=== PATIENT | male | born 1945 | race Caucasian/White ===

== ENCOUNTER 2022-12-09 21:53 | Inpatient (IN) | payer MEDICARE, OTHER ==
[~2022-12-09] VITALS: Ht 175.3 cm; Wt 63.5 kg
[2022-12-09] MEDS ORDERED: LIDOCAINE 2% JEL UROJET 10 ML MM ONE (22:39)
[2022-12-09 22:41] LABS: BASOPHILS # (AUTO) 0.1 K/uL (0.0-0.2); BASOPHILS % (AUTO) 0.9 % (0.0-2.0); EOSINOPHILS # (AUTO) 0.2 K/uL (0.0-0.7); HEMATOCRIT 38 % (39-51); HEMOGLOBIN 12.5 g/dL (13.5-17.5); LYMPHOCYTES # (AUTO) 2.3 K/uL (0.8-4.8); LYMPHOCYTES % (AUTO) 38.1 % (20.0-44.0); MEAN CORPUSCULAR HEMOGLOBIN 30 PG (26.0-33.0); MEAN CORPUSCULAR HGB CONC 33 g/dl (31.0-36.0); MEAN CORPUSCULAR VOLUME 92 fL (80-96); MONOCYTES # (AUTO) 0.4 K/uL (0.1-1.30); MONOCYTES % (AUTO) 7.1 % (2.0-12.0); NEUTROPHILS # (AUTO) 3.1 K/uL (1.8-8.9); NEUTROPHILS % (AUTO) 49.9 % (43.0-81.0); PLATELET COUNT (AUTO) 231 K/uL (150-450); RED BLOOD CELL COUNT(AUTO) 4.12 MIL/uL (4.5-6.0); RED CELL DISTRIBUTION WIDTH 16.1 % (11.5-15.0); WHITE BLOOD COUNT (AUTO) 6.2 K/uL (4.3-11.0)
[2022-12-09 22:45] LABS: CALCIUM, SERUM 9.5 mg/dL (8.5-10.1); CARBON DIOXIDE 29 mmol/L (21-32); CHLORIDE 106 mmol/L (98-107); GLUCOSE 94 mg/dL (74-106); SODIUM SERUM 143 mmol/L (136-145); UREA NITROGEN, BLOOD 26 mg/dL (7-18)
[2022-12-09 22:51] LABS: ALANINE AMINOTRANSFERASE 28 U/L (12-78); ALBUMIN 3.8 g/dL (3.4-5.0); ALCOHOL, BLOOD < 3 mg/dL (0-10); ALKALINE PHOSPHATASE 91 U/L (46-116); ASPARTATE AMINOTRANSFERASE 24 U/L (15-37); BILIRUBIN,DIRECT 0.1 mg/dL (0.0-0.2); BILIRUBIN,TOTAL 0.3 mg/dL (0.2-1.0); TOTAL PROTEIN, SERUM 6.9 g/dL (6.4-8.2)
[2022-12-09 22:52] LABS: ACETAMINOPHEN <10 ug/ml (10-30); SALICYLATE 0.4 mg/dL (2.8-20.0)
[2022-12-09 23:03] LABS: APPEARANCE,URINE CLEAR (CLEAR); BILIRUBIN,URINE NEGATIVE (NEGATIVE); BLOOD, URINE NEGATIVE Ery/uL (NEGATIVE); COLOR,URINE YELLOW (YELLOW); KETONES,URINE NEGATIVE (NEGATIVE); LEUKOCYTE ESTERASE ,URINE NEGATIVE (NEGATIVE); NITRITE, URINE NEGATIVE (NEGATIVE); PH,URINE 7.5 (5.0-8.0); PROTEIN,URINE NEGATIVE (NEGATIVE); UGLUCOSE NEGATIVE (NEGATIVE); UROBILINOGEN,URINE 0.2 EU/dL (0.2)
[2022-12-09 23:11] LABS: AMPHETAMINE, URINE NEGATIVE (NEGATIVE); BARBITURATE, URINE NEGATIVE (NEGATIVE); BENZODIAZEPINE, URINE NEGATIVE (NEGATIVE); CANNABINOID, URINE NEGATIVE (NEGATIVE); COCCAINE, URINE NEGATIVE (NEGATIVE); OPIATE, URINE NEGATIVE (NEGATIVE); PHENCYCLIDINE SCREEN,URINE NEGATIVE (NEGATIVE)
[2022-12-10] MEDS ORDERED: DIVA250T PO (02:08)
[2022-12-10] MEDS ORDERED: FAMO20TA8 PO (02:08)
[2022-12-10] MEDS ORDERED: CLOP75TA15 PO (02:08)
[2022-12-10] MEDS ORDERED: LOSA25TA27 PO (02:08)
[2022-12-10] MEDS ORDERED: ASPI-1420 PO (02:08)
[2022-12-10] MEDS ORDERED: ATOR80TA PO (02:08)
[2022-12-10] MEDS ORDERED: DIVA500T2 GT (02:59)
[2022-12-10] MEDS ORDERED: MELA5TAB PO (02:59)
[2022-12-10] MEDS ORDERED: ACETAMINOPHEN 325 MG TABLET PO PRN (03:00)
[2022-12-10] MEDS ORDERED: MAGNESIUM HYDROXIDE 30 ML UDC PO PRN (03:00)
[2022-12-10] MEDS ORDERED: MAG HYDROX/AL HYDROX/SIMETH 30 ML UDC PO PRN (03:00)
[2022-12-10] MEDS ORDERED: NITR0.4T48 SL (03:00)
[2022-12-10] MEDS ORDERED: BLOOD SUGAR DIAGNOSTIC 1 EACH STRIP IN ONE (03:00)
[2022-12-10] MEDS ORDERED: OLAN2.5T3 PO (03:02)
[2022-12-10] MEDS ORDERED: OLAN5TAB3 PO (03:02)
[2022-12-10] MEDS ORDERED: SENN1TAB6 PO (03:05)
[2022-12-10] MEDS ORDERED: TAMS-12 PO (03:08)
[2022-12-10] MEDS ORDERED: Z GUARD REMEDY 4 OZ OINT TP PRN (03:30)
[2022-12-10 03:55] VITALS: BP 119/74; TEMP 98; O2SAT 98
[2022-12-10] MEDS ORDERED: BISA10SU11 RC (07:37)
[2022-12-10] MEDS ORDERED: RIVA6CAP11 PO (07:37)
[2022-12-10] MEDS ORDERED: DIVA-76 PO (07:37)
[2022-12-10] MEDS ORDERED: METO25TA20 PO (07:37)
[2022-12-10] MEDS ORDERED: ACET-2605 PO ×2 (07:37)
[2022-12-10] MEDS ORDERED: ACET-868 PO (07:37)
[2022-12-10] MEDS ORDERED: SENN-261 PO (07:37)
[2022-12-10] MEDS ORDERED: NA P133E RC (07:37)
[2022-12-10] MEDS ORDERED: ASPI-1169 PO (07:37)
[2022-12-10] MEDS ORDERED: MAGN400O6 PO (07:37)
[2022-12-10 08:00] VITALS: BP 126/60; TEMP 97.8; O2SAT 94
[2022-12-10] MEDS: Z GUARD REMEDY 4 OZ OINT TP SCH (09:58)
[2022-12-10 16:00] VITALS: BP 130/71; TEMP 97.6; O2SAT 96
[2022-12-10] MEDS: CLOPIDOGREL BISULFATE 75 MG TABLET PO SCH (16:12)
[2022-12-10] MEDS: METOPROLOL TARTRATE 25 MG TABLET PO SCH (16:12)
[2022-12-10] MEDS: DIVALPROEX SODIUM 125 MG CAP.SPRINK PO SCH (16:13)
[2022-12-10 20:00] VITALS: BP 134/71; TEMP 98.1; O2SAT 95
[2022-12-10] MEDS: TAMSULOSIN 0.4 MG CAP.SR.24H PO SCH (21:21)
[2022-12-10] MEDS: ATORVASTATIN 40 MG TABLET PO SCH (21:21)
[2022-12-11 07:18] LABS: CHOLESTEROL 158 mg/dL (<200); HDL CHOLESTEROL 88 mg/dL (40-60); LDL 62 mg/dL (0-99); TRIGLYCERIDES 38 mg/dL (30-150)
[2022-12-11 08:00] VITALS: BP 103/71; TEMP 98.1; O2SAT 94
[2022-12-11] MEDS: LOSARTAN POTASSIUM 25 MG TABLET PO SCH (08:58)
[2022-12-11] MEDS: METOPROLOL TARTRATE 25 MG TABLET PO SCH ×2 (08:59→17:18)
[2022-12-11] MEDS: Z GUARD REMEDY 4 OZ OINT TP SCH (09:00)
[2022-12-11] MEDS ORDERED: CLOPIDOGREL BISULFATE 75 MG TABLET PO SCH (09:00)
[2022-12-11] MEDS: DIVALPROEX SODIUM 125 MG CAP.SPRINK PO SCH ×3 (09:01→17:17)
[2022-12-11] MEDS: FAMOTIDINE (20 MG) 20 MG TABLET PO SCH (09:01)
[2022-12-11] MEDS: ASPIRIN 81 MG TAB.CHEW PO SCH (09:01)
[2022-12-11] MEDS: CLOPIDOGREL BISULFATE 75 MG TABLET PO SCH (09:01)
[2022-12-11 09:45] LABS: ALBUMIN 3.8 g/dL (3.4-5.0); BILIRUBIN,TOTAL 0.6 mg/dL (0.2-1.0); CALCIUM, SERUM 9.2 mg/dL (8.5-10.1); CREATININE 0.9 mg/dL (0.6-1.3); POTASSIUM 3.7 mmol/L (3.5-5.1); TOTAL PROTEIN, SERUM 7.6 g/dL (6.4-8.2)
[2022-12-11 12:17] LABS: THYROID STIMULATING HORMONE 4.939 uIU/mL (0.358-3.74)
[2022-12-11 16:00] VITALS: BP 120/85; TEMP 97.6; O2SAT 92
[2022-12-11] MEDS: TAMSULOSIN 0.4 MG CAP.SR.24H PO SCH (21:37)
[2022-12-11] MEDS: ATORVASTATIN 40 MG TABLET PO SCH (21:37)
[2022-12-12 06:06] LABS: FOLIC ACID > 20.0 ng/mL (>3.0)
[2022-12-12 08:00] VITALS: BP 118/99; TEMP 97.7; O2SAT 98
[2022-12-12] MEDS: FAMOTIDINE (20 MG) 20 MG TABLET PO SCH (08:40)
[2022-12-12] MEDS: CLOPIDOGREL BISULFATE 75 MG TABLET PO SCH (08:53)
[2022-12-12] MEDS: LOSARTAN POTASSIUM 25 MG TABLET PO SCH (08:54)
[2022-12-12] MEDS: METOPROLOL TARTRATE 25 MG TABLET PO SCH ×2 (08:54→16:10)
[2022-12-12] MEDS: ASPIRIN 81 MG TAB.CHEW PO SCH (08:54)
[2022-12-12] MEDS: DIVALPROEX SODIUM 125 MG CAP.SPRINK PO SCH ×3 (08:54→16:08)
[2022-12-12] MEDS: Z GUARD REMEDY 4 OZ OINT TP SCH (08:55)
[2022-12-12 16:00] VITALS: BP 111/80; TEMP 97.8; O2SAT 98
[2022-12-12] MEDS: LORAZEPAM 0.5 MG TABLET PO PRN (16:47)
[2022-12-12 20:14] VITALS: BP 116/84; TEMP 97.9; O2SAT 97
[2022-12-12] MEDS: TAMSULOSIN 0.4 MG CAP.SR.24H PO SCH (21:52)
[2022-12-12] MEDS: ATORVASTATIN 40 MG TABLET PO SCH (21:52)
[2022-12-13 08:00] VITALS: BP 112/82; TEMP 97.7; O2SAT 96
[2022-12-13] MEDS: ASPIRIN 81 MG TAB.CHEW PO SCH (08:43)
[2022-12-13] MEDS: FAMOTIDINE (20 MG) 20 MG TABLET PO SCH (08:43)
[2022-12-13] MEDS: DIVALPROEX SODIUM 125 MG CAP.SPRINK PO SCH ×3 (08:43→17:11)
[2022-12-13] MEDS: CLOPIDOGREL BISULFATE 75 MG TABLET PO SCH (08:43)
[2022-12-13] MEDS: LORAZEPAM 0.5 MG TABLET PO PRN ×2 (08:43→17:11)
[2022-12-13] MEDS: METOPROLOL TARTRATE 25 MG TABLET PO SCH ×2 (08:44→17:12)
[2022-12-13] MEDS: LOSARTAN POTASSIUM 25 MG TABLET PO SCH (08:44)
[2022-12-13] MEDS: Z GUARD REMEDY 4 OZ OINT TP SCH (08:45)
[2022-12-13 16:00] VITALS: BP 108/96; TEMP 97.8; O2SAT 98
[2022-12-13 20:47] VITALS: TEMP 97.9; O2SAT 98
[2022-12-13] MEDS: ATORVASTATIN 40 MG TABLET PO SCH (21:31)
[2022-12-13] MEDS: TAMSULOSIN 0.4 MG CAP.SR.24H PO SCH (21:31)
[2022-12-13] MEDS: TEMAZEPAM 7.5 MG CAPSULE PO PRN (21:57)
[2022-12-14] MEDS: LORAZEPAM 0.5 MG TABLET PO PRN (04:02)
[2022-12-14 08:00] VITALS: BP 135/90; TEMP 97.9; O2SAT 98
[2022-12-14] MEDS: FAMOTIDINE (20 MG) 20 MG TABLET PO SCH (10:00)
[2022-12-14] MEDS: Z GUARD REMEDY 4 OZ OINT TP SCH (10:00)
[2022-12-14] MEDS: ASPIRIN 81 MG TAB.CHEW PO SCH (10:00)
[2022-12-14] MEDS: CLOPIDOGREL BISULFATE 75 MG TABLET PO SCH (10:01)
[2022-12-14] MEDS: DIVALPROEX SODIUM 125 MG CAP.SPRINK PO SCH ×3 (10:01→16:15)
[2022-12-14] MEDS: LOSARTAN POTASSIUM 25 MG TABLET PO SCH (10:02)
[2022-12-14] MEDS: METOPROLOL TARTRATE 25 MG TABLET PO SCH ×2 (10:02→16:15)
[2022-12-14 16:00] VITALS: BP 98/74; TEMP 98; O2SAT 97
[2022-12-14 20:47] VITALS: BP 131/96; TEMP 97.8; O2SAT 95
[2022-12-14] MEDS: ATORVASTATIN 40 MG TABLET PO SCH (21:34)
[2022-12-14] MEDS: TEMAZEPAM 7.5 MG CAPSULE PO PRN (21:34)
[2022-12-14] MEDS: TAMSULOSIN 0.4 MG CAP.SR.24H PO SCH (21:34)
[2022-12-15 08:00] VITALS: BP 121/87; TEMP 97.9; O2SAT 97
[2022-12-15] MEDS: FAMOTIDINE (20 MG) 20 MG TABLET PO SCH (08:01)
[2022-12-15] MEDS: DIVALPROEX SODIUM 125 MG CAP.SPRINK PO SCH ×3 (09:34→17:22)
[2022-12-15] MEDS: LOSARTAN POTASSIUM 25 MG TABLET PO SCH (09:34)
[2022-12-15] MEDS: METOPROLOL TARTRATE 25 MG TABLET PO SCH ×2 (09:34→17:22)
[2022-12-15] MEDS: Z GUARD REMEDY 4 OZ OINT TP SCH (09:34)
[2022-12-15] MEDS: CLOPIDOGREL BISULFATE 75 MG TABLET PO SCH (09:34)
[2022-12-15] MEDS: ASPIRIN 81 MG TAB.CHEW PO SCH (09:34)
[2022-12-15 12:07] LABS: METHYLMALONIC ACID 207 nmol/L (0-378)
[2022-12-15] MEDS: LORAZEPAM 0.5 MG TABLET PO PRN (12:46)
[2022-12-15 16:09] VITALS: BP 115/67; TEMP 97.8; O2SAT 98
[2022-12-15 21:38] VITALS: BP 117/85; TEMP 98.6; O2SAT 94
[2022-12-15] MEDS: TAMSULOSIN 0.4 MG CAP.SR.24H PO SCH (21:46)
[2022-12-15] MEDS: ATORVASTATIN 40 MG TABLET PO SCH (21:46)
[2022-12-16 08:00] VITALS: BP 131/70; TEMP 98.7; O2SAT 98
[2022-12-16] MEDS: FAMOTIDINE (20 MG) 20 MG TABLET PO SCH (08:58)
[2022-12-16] MEDS: ASPIRIN 81 MG TAB.CHEW PO SCH (08:58)
[2022-12-16] MEDS: LORAZEPAM 0.5 MG TABLET PO PRN ×2 (08:58→13:54)
[2022-12-16] MEDS: CLOPIDOGREL BISULFATE 75 MG TABLET PO SCH (08:58)
[2022-12-16] MEDS: METOPROLOL TARTRATE 25 MG TABLET PO SCH ×2 (08:59→17:47)
[2022-12-16] MEDS: DIVALPROEX SODIUM 125 MG CAP.SPRINK PO SCH ×3 (08:59→17:45)
[2022-12-16] MEDS: LOSARTAN POTASSIUM 25 MG TABLET PO SCH (08:59)
[2022-12-16] MEDS: Z GUARD REMEDY 4 OZ OINT TP SCH (09:00)
[2022-12-16 16:00] VITALS: BP 123/83; TEMP 97.7; O2SAT 97
[2022-12-16 20:31] VITALS: BP 100/71; TEMP 98.9; O2SAT 95
[2022-12-16] MEDS: TAMSULOSIN 0.4 MG CAP.SR.24H PO SCH (21:15)
[2022-12-16] MEDS: ATORVASTATIN 40 MG TABLET PO SCH (21:15)
[2022-12-17 08:00] VITALS: BP 110/64; TEMP 97.6; O2SAT 94
[2022-12-17] MEDS: DIVALPROEX SODIUM 125 MG CAP.SPRINK PO SCH ×3 (08:50→16:55)
[2022-12-17] MEDS: FAMOTIDINE (20 MG) 20 MG TABLET PO SCH (08:50)
[2022-12-17] MEDS: ASPIRIN 81 MG TAB.CHEW PO SCH (08:50)
[2022-12-17] MEDS: CLOPIDOGREL BISULFATE 75 MG TABLET PO SCH (08:51)
[2022-12-17] MEDS: METOPROLOL TARTRATE 25 MG TABLET PO SCH ×2 (08:52→16:55)
[2022-12-17] MEDS: LOSARTAN POTASSIUM 25 MG TABLET PO SCH (08:52)
[2022-12-17] MEDS: Z GUARD REMEDY 4 OZ OINT TP SCH (08:53)
[2022-12-17 16:00] VITALS: BP 111/64; TEMP 97.8; O2SAT 95
[2022-12-17 20:00] VITALS: BP 118/71; TEMP 98.1; O2SAT 97
[2022-12-17] MEDS: ATORVASTATIN 40 MG TABLET PO SCH (22:02)
[2022-12-17] MEDS: TAMSULOSIN 0.4 MG CAP.SR.24H PO SCH (22:02)
[2022-12-18 08:00] VITALS: BP 110/65; TEMP 97.7; O2SAT 97
[2022-12-18] MEDS: FAMOTIDINE (20 MG) 20 MG TABLET PO SCH (08:46)
[2022-12-18] MEDS: METOPROLOL TARTRATE 25 MG TABLET PO SCH ×2 (09:00→16:31)
[2022-12-18] MEDS: LOSARTAN POTASSIUM 25 MG TABLET PO SCH (09:00)
[2022-12-18] MEDS: CLOPIDOGREL BISULFATE 75 MG TABLET PO SCH (09:11)
[2022-12-18] MEDS: ASPIRIN 81 MG TAB.CHEW PO SCH (09:11)
[2022-12-18] MEDS: DIVALPROEX SODIUM 125 MG CAP.SPRINK PO SCH ×3 (09:11→16:30)
[2022-12-18] MEDS: Z GUARD REMEDY 4 OZ OINT TP SCH (09:12)
[2022-12-18] MEDS: LORAZEPAM 0.5 MG TABLET PO PRN (14:43)
[2022-12-18 16:00] VITALS: BP 112/76; TEMP 97.8; O2SAT 96
[2022-12-18] MEDS: TAMSULOSIN 0.4 MG CAP.SR.24H PO SCH (21:49)
[2022-12-18] MEDS: ATORVASTATIN 40 MG TABLET PO SCH (21:49)
[2022-12-19] MEDS: FAMOTIDINE (20 MG) 20 MG TABLET PO SCH (07:58)
[2022-12-19 08:00] VITALS: BP 105/48; TEMP 98.6; O2SAT 94
[2022-12-19] MEDS: CLOPIDOGREL BISULFATE 75 MG TABLET PO SCH (08:00)
[2022-12-19] MEDS: DIVALPROEX SODIUM 125 MG CAP.SPRINK PO SCH ×3 (08:00→16:51)
[2022-12-19] MEDS: LOSARTAN POTASSIUM 25 MG TABLET PO SCH (08:00)
[2022-12-19] MEDS: METOPROLOL TARTRATE 25 MG TABLET PO SCH ×2 (08:00→16:51)
[2022-12-19] MEDS: ASPIRIN 81 MG TAB.CHEW PO SCH (08:00)
[2022-12-19] MEDS: ENSURE ENLIVE 237 ML LIQUID (VANILLA) PO SCH (08:01)
[2022-12-19] MEDS: Z GUARD REMEDY 4 OZ OINT TP SCH (08:01)
[2022-12-19] MEDS: LORAZEPAM 0.5 MG TABLET PO PRN ×2 (12:06→18:16)
[2022-12-19 15:27] LABS: BASOPHILS % (AUTO) 0.4 % (0.0-2.0); EOSINOPHILS # (AUTO) 0.1 K/uL (0.0-0.7); EOSINOPHILS % (AUTO) 0.9 % (0.0-6.0); HEMATOCRIT 37 % (39-51); HEMOGLOBIN 12.4 g/dL (13.5-17.5); LYMPHOCYTES # (AUTO) 2.7 K/uL (0.8-4.8); LYMPHOCYTES % (AUTO) 28.9 % (20.0-44.0); MEAN CORPUSCULAR HEMOGLOBIN 30 PG (26.0-33.0); MEAN CORPUSCULAR HGB CONC 33 g/dl (31.0-36.0); MEAN CORPUSCULAR VOLUME 91 fL (80-96); MONOCYTES # (AUTO) 0.8 K/uL (0.1-1.30); NEUTROPHILS # (AUTO) 5.8 K/uL (1.8-8.9); NEUTROPHILS % (AUTO) 61.8 % (43.0-81.0); PLATELET COUNT (AUTO) 332 K/uL (150-450); RED CELL DISTRIBUTION WIDTH 15.7 % (11.5-15.0); WHITE BLOOD COUNT (AUTO) 9.4 K/uL (4.3-11.0)
[2022-12-19 15:46] LABS: ALANINE AMINOTRANSFERASE 49 U/L (12-78); ALBUMIN 2.7 g/dL (3.4-5.0); ALKALINE PHOSPHATASE 73 U/L (46-116); ASPARTATE AMINOTRANSFERASE 59 U/L (15-37); BILIRUBIN,TOTAL 0.4 mg/dL (0.2-1.0); CALCIUM, SERUM 8.9 mg/dL (8.5-10.1); CARBON DIOXIDE 29 mmol/L (21-32); CHLORIDE 103 mmol/L (98-107); CREATININE 0.6 mg/dL (0.6-1.3); GLUCOSE 76 mg/dL (74-106); POTASSIUM 4.2 mmol/L (3.5-5.1); SODIUM SERUM 141 mmol/L (136-145); TOTAL PROTEIN, SERUM 6.4 g/dL (6.4-8.2); UREA NITROGEN, BLOOD 23 mg/dL (7-18)
[2022-12-19 15:52] LABS: VALPROIC ACID 41 ug/mL (50-100)
[2022-12-19 16:00] VITALS: BP 128/83; TEMP 97.6; O2SAT 94
[2022-12-19 20:00] VITALS: BP 109/64; TEMP 98.3; O2SAT 96
[2022-12-19] MEDS: ATORVASTATIN 40 MG TABLET PO SCH (22:13)
[2022-12-19] MEDS: TAMSULOSIN 0.4 MG CAP.SR.24H PO SCH (22:13)
[2022-12-20 08:00] VITALS: BP 112/67; TEMP 97.8; O2SAT 96
[2022-12-20] MEDS: ASPIRIN 81 MG TAB.CHEW PO SCH (08:20)
[2022-12-20] MEDS: DIVALPROEX SODIUM 125 MG CAP.SPRINK PO SCH ×3 (08:20→16:31)
[2022-12-20] MEDS: METOPROLOL TARTRATE 25 MG TABLET PO SCH ×2 (08:20→16:30)
[2022-12-20] MEDS: FAMOTIDINE (20 MG) 20 MG TABLET PO SCH (08:21)
[2022-12-20] MEDS: LOSARTAN POTASSIUM 25 MG TABLET PO SCH (08:21)
[2022-12-20] MEDS: ENSURE ENLIVE 237 ML LIQUID (VANILLA) PO SCH (08:21)
[2022-12-20] MEDS: CLOPIDOGREL BISULFATE 75 MG TABLET PO SCH (08:21)
[2022-12-20] MEDS: LORAZEPAM 0.5 MG TABLET PO PRN ×2 (08:21→15:46)
[2022-12-20] MEDS: Z GUARD REMEDY 4 OZ OINT TP SCH (08:53)
[2022-12-20 16:00] VITALS: BP 104/62; TEMP 97.9; O2SAT 97
[2022-12-20] MEDS: busPIRone 5 MG TABLET PO SCH (16:32)
[2022-12-20 20:35] VITALS: BP 138/81; TEMP 97.9; O2SAT 96
[2022-12-20] MEDS: TEMAZEPAM 7.5 MG CAPSULE PO PRN (20:41)
[2022-12-20] MEDS: TAMSULOSIN 0.4 MG CAP.SR.24H PO SCH (21:03)
[2022-12-20] MEDS: ATORVASTATIN 40 MG TABLET PO SCH (21:03)
[2022-12-21] MEDS: LORAZEPAM 0.5 MG TABLET PO PRN ×2 (06:58→14:36)
[2022-12-21 08:00] VITALS: BP 126/78; TEMP 98.6; O2SAT 97
[2022-12-21] MEDS: FAMOTIDINE (20 MG) 20 MG TABLET PO SCH (08:19)
[2022-12-21] MEDS: CLOPIDOGREL BISULFATE 75 MG TABLET PO SCH (08:34)
[2022-12-21] MEDS: LOSARTAN POTASSIUM 25 MG TABLET PO SCH (08:34)
[2022-12-21] MEDS: ASPIRIN 81 MG TAB.CHEW PO SCH (08:34)
[2022-12-21] MEDS: busPIRone 5 MG TABLET PO SCH ×3 (08:34→16:09)
[2022-12-21] MEDS: DIVALPROEX SODIUM 125 MG CAP.SPRINK PO SCH ×3 (08:34→16:08)
[2022-12-21] MEDS: METOPROLOL TARTRATE 25 MG TABLET PO SCH ×2 (08:35→16:09)
[2022-12-21] MEDS: Z GUARD REMEDY 4 OZ OINT TP SCH (08:35)
[2022-12-21] MEDS: ENSURE ENLIVE 237 ML LIQUID (VANILLA) PO SCH (08:36)
[2022-12-21 11:20] LABS: BASOPHILS % (AUTO) 0.2 % (0.0-2.0); EOSINOPHILS # (AUTO) 0.1 K/uL (0.0-0.7); EOSINOPHILS % (AUTO) 0.7 % (0.0-6.0); HEMATOCRIT 37 % (39-51); HEMOGLOBIN 12.4 g/dL (13.5-17.5); LYMPHOCYTES # (AUTO) 2.5 K/uL (0.8-4.8); LYMPHOCYTES % (AUTO) 19.5 % (20.0-44.0); MEAN CORPUSCULAR HEMOGLOBIN 31 PG (26.0-33.0); MEAN CORPUSCULAR HGB CONC 33 g/dl (31.0-36.0); MEAN CORPUSCULAR VOLUME 92 fL (80-96); MONOCYTES # (AUTO) 0.7 K/uL (0.1-1.30); MONOCYTES % (AUTO) 5.5 % (2.0-12.0); NEUTROPHILS # (AUTO) 9.4 K/uL (1.8-8.9); NEUTROPHILS % (AUTO) 74.1 % (43.0-81.0); PLATELET COUNT (AUTO) 375 K/uL (150-450); RED BLOOD CELL COUNT(AUTO) 4.06 MIL/uL (4.5-6.0); RED CELL DISTRIBUTION WIDTH 15.6 % (11.5-15.0); WHITE BLOOD COUNT (AUTO) 12.7 K/uL (4.3-11.0)
[2022-12-21 11:43] LABS: ALANINE AMINOTRANSFERASE 46 U/L (12-78); ALBUMIN 2.7 g/dL (3.4-5.0); ALKALINE PHOSPHATASE 80 U/L (46-116); ASPARTATE AMINOTRANSFERASE 40 U/L (15-37); BILIRUBIN,TOTAL 0.5 mg/dL (0.2-1.0); CARBON DIOXIDE 27 mmol/L (21-32); CHLORIDE 104 mmol/L (98-107); CREATININE 0.7 mg/dL (0.6-1.3); GLUCOSE 141 mg/dL (74-106); POTASSIUM 3.7 mmol/L (3.5-5.1); SODIUM SERUM 141 mmol/L (136-145); TOTAL PROTEIN, SERUM 6.2 g/dL (6.4-8.2); UREA NITROGEN, BLOOD 21 mg/dL (7-18)
[2022-12-21] MEDS: SERTRALINE HCL 25 MG TABLET PO SCH (13:33)
[2022-12-21 16:00] VITALS: BP 117/77; TEMP 98.6; O2SAT 99
[2022-12-21] MEDS: BACITRACIN ZINC OINT (15 GM) 15 GM TUBE TP SCH (16:10)
[2022-12-21 19:09] LABS: APPEARANCE,URINE CLOUDY (CLEAR); BILIRUBIN,URINE NEGATIVE (NEGATIVE); BLOOD, URINE NEGATIVE Ery/uL (NEGATIVE); COLOR,URINE YELLOW (YELLOW); KETONES,URINE 1+ mg/dL (NEGATIVE); LEUKOCYTE ESTERASE ,URINE 1+ (NEGATIVE); NITRITE, URINE NEGATIVE (NEGATIVE); PROTEIN,URINE NEGATIVE (NEGATIVE); UGLUCOSE NEGATIVE (NEGATIVE)
[2022-12-21 19:31] LABS: ADD URINE CULTURE YES; BACTERIA,URINE 2+ /HPF (None Seen); RBC,URINE 0-2 /HPF (0-2); URINE AMORPHOUS PHOSPHATES Many /HPF (None Seen)
[2022-12-21 20:29] VITALS: BP 118/85; TEMP 97.6; O2SAT 97
[2022-12-21] MEDS: ATORVASTATIN 40 MG TABLET PO SCH (21:05)
[2022-12-21] MEDS: TAMSULOSIN 0.4 MG CAP.SR.24H PO SCH (21:05)
[2022-12-21] MEDS: TEMAZEPAM 7.5 MG CAPSULE PO PRN (21:16)
[2022-12-22] MEDS ORDERED: NITROFURANTOIN/MONOHYDRATE MACROCRYSTALS 100 MG CAPSULE PO SCH (06:00)
[2022-12-22 06:52] LABS: BASOPHILS % (AUTO) 0.3 % (0.0-2.0); EOSINOPHILS # (AUTO) 0.1 K/uL (0.0-0.7); EOSINOPHILS % (AUTO) 1.3 % (0.0-6.0); HEMATOCRIT 39 % (39-51); HEMOGLOBIN 12.8 g/dL (13.5-17.5); MEAN CORPUSCULAR HEMOGLOBIN 30 PG (26.0-33.0); MEAN CORPUSCULAR HGB CONC 33 g/dl (31.0-36.0); MEAN CORPUSCULAR VOLUME 92 fL (80-96); MONOCYTES # (AUTO) 0.5 K/uL (0.1-1.30); MONOCYTES % (AUTO) 5.2 % (2.0-12.0); NEUTROPHILS # (AUTO) 6.3 K/uL (1.8-8.9); NEUTROPHILS % (AUTO) 63.2 % (43.0-81.0); PLATELET COUNT (AUTO) 381 K/uL (150-450); RED BLOOD CELL COUNT(AUTO) 4.24 MIL/uL (4.5-6.0); RED CELL DISTRIBUTION WIDTH 15.5 % (11.5-15.0); WHITE BLOOD COUNT (AUTO) 9.9 K/uL (4.3-11.0)
[2022-12-22 07:23] LABS: ALANINE AMINOTRANSFERASE 38 U/L (12-78); ALBUMIN 2.6 g/dL (3.4-5.0); ALKALINE PHOSPHATASE 76 U/L (46-116); ASPARTATE AMINOTRANSFERASE 40 U/L (15-37); BILIRUBIN,TOTAL 0.6 mg/dL (0.2-1.0); CALCIUM, SERUM 9.2 mg/dL (8.5-10.1); CARBON DIOXIDE 26 mmol/L (21-32); CHLORIDE 105 mmol/L (98-107); CREATININE 0.6 mg/dL (0.6-1.3); GLUCOSE 88 mg/dL (74-106); POTASSIUM 4.3 mmol/L (3.5-5.1); SODIUM SERUM 139 mmol/L (136-145); TOTAL PROTEIN, SERUM 6.3 g/dL (6.4-8.2); UREA NITROGEN, BLOOD 20 mg/dL (7-18); VALPROIC ACID 45 ug/mL (50-100)
[2022-12-22 08:00] VITALS: BP 113/73; TEMP 98.6; O2SAT 96
[2022-12-22] MEDS: FAMOTIDINE (20 MG) 20 MG TABLET PO SCH (08:09)
[2022-12-22] MEDS: ENSURE ENLIVE 237 ML LIQUID (VANILLA) PO SCH (09:00)
[2022-12-22] MEDS: METOPROLOL TARTRATE 25 MG TABLET PO SCH (09:00)
[2022-12-22] MEDS: LOSARTAN POTASSIUM 25 MG TABLET PO SCH (09:00)
[2022-12-22] MEDS: ASPIRIN 81 MG TAB.CHEW PO SCH (09:46)
[2022-12-22] MEDS: CLOPIDOGREL BISULFATE 75 MG TABLET PO SCH (09:46)
[2022-12-22] MEDS: busPIRone 5 MG TABLET PO SCH ×2 (09:46→13:10)
[2022-12-22] MEDS: DIVALPROEX SODIUM 125 MG CAP.SPRINK PO SCH ×2 (09:46→13:10)
[2022-12-22] MEDS: LORAZEPAM 0.5 MG TABLET PO PRN (09:47)
[2022-12-22] MEDS: Z GUARD REMEDY 4 OZ OINT TP SCH (09:48)
[2022-12-22] MEDS: BACITRACIN ZINC OINT (15 GM) 15 GM TUBE TP SCH (09:48)
[2022-12-22 12:30] VITALS: BP 113/73; TEMP 98.6; O2SAT 96
[2022-12-22] MEDS: SERTRALINE HCL 25 MG TABLET PO SCH (13:10)
== END 2022-12-22 14:30 | DRG 885 ==
LOC: ER 22:02 → GPS 12-10 01:52
PROVIDERS: ADMIT Psychiatry & Neurology Psychosomatic Medicine; ATTEND Student in an Organized Health Care Education/Training Program
DX: F39 Unspecified mood [affective] disorder (principal); I42.9 Cardiomyopathy, unspecified; F02.818 Dementia in other diseases classified elsewhere, unspecified severity, with other behavioral disturbance; F29 Unspecified psychosis not due to a substance or known physiological condition; I10 Essential (primary) hypertension; N40.0 Benign prostatic hyperplasia without lower urinary tract symptoms; K21.9 Gastro-esophageal reflux disease without esophagitis; F41.9 Anxiety disorder, unspecified; Z73.6 Limitation of activities due to disability; G62.9 Polyneuropathy, unspecified; I25.2 Old myocardial infarction; Z88.8 Allergy status to other drugs, medicaments and biological substances; Z79.02 Long term (current) use of antithrombotics/antiplatelets; Z79.82 Long term (current) use of aspirin; Z79.899 Other long term (current) drug therapy; Z91.85 Personal history of military service; Z87.891 Personal history of nicotine dependence; S90.821A Blister (nonthermal), right foot, initial encounter; X58.XXXA Exposure to other specified factors, initial encounter; Y92.9 Unspecified place or not applicable; E78.5 Hyperlipidemia, unspecified; E16.2 Hypoglycemia, unspecified; G30.9 Alzheimer's disease, unspecified
CPT/HCPCS: 36415; 70450-TC; 80048-TC; 80053-TC; 80061-TC; 80076-TC; 80164-TC; 81001; 82607-TC; 82962-TC; 83921; 84439-TC; 84443-TC; 85025-TC; 87081-TC; 87086-TC; 92526; 92611-TC; 97110-TC; 97116-TC; 97530-TC; A6403; C9803; G0480; J3490

== ENCOUNTER 2023-01-14 19:15 | Inpatient (IN) | payer MEDICARE, OTHER ==
[~2023-01-14] VITALS: Ht 182.9 cm; Wt 72.1 kg
[~2023-01-14 19:15] MED LIST: ACET-2605 PO; ACET-868 PO; ASPI-1169 PO; ATOR80TA PO; BISA10SU11 RC; CLOP75TA15 PO; FAMO20TA8 PO; LOSA25TA27 PO; MAGN400O6 PO; METO25TA20 PO; NA P133E RC; NITR0.4T48 SL; RIVA6CAP11 PO; SENN-261 PO; TAMS-12 PO
[2023-01-14] MEDS ORDERED: OLANZAPINE 10 MG VIAL IM ONE ×2 (19:30→19:36)
[2023-01-14] MEDS ORDERED: LORAZEPAM INJ 2 MG/ML VIAL ONE (19:36)
[2023-01-14] MEDS ORDERED: LORAZEPAM INJ 2 MG/ML VIAL IM ONE (20:00)
[2023-01-14 20:22] LABS: BASOPHILS # (AUTO) 0.1 K/uL (0.0-0.2); BASOPHILS % (AUTO) 0.5 % (0.0-2.0); EOSINOPHILS % (AUTO) 0.2 % (0.0-6.0); HEMATOCRIT 34 % (39-51); HEMOGLOBIN 10.6 g/dL (13.5-17.5); LYMPHOCYTES # (AUTO) 2.5 K/uL (0.8-4.8); LYMPHOCYTES % (AUTO) 16.1 % (20.0-44.0); MEAN CORPUSCULAR HEMOGLOBIN 29 PG (26.0-33.0); MEAN CORPUSCULAR HGB CONC 32 g/dl (31.0-36.0); MEAN CORPUSCULAR VOLUME 93 fL (80-96); MONOCYTES # (AUTO) 0.6 K/uL (0.1-1.30); NEUTROPHILS # (AUTO) 12.4 K/uL (1.8-8.9); NEUTROPHILS % (AUTO) 79.2 % (43.0-81.0); PLATELET COUNT (AUTO) 833 K/uL (150-450); RED BLOOD CELL COUNT(AUTO) 3.61 MIL/uL (4.5-6.0); RED CELL DISTRIBUTION WIDTH 15.9 % (11.5-15.0); WHITE BLOOD COUNT (AUTO) 15.6 K/uL (4.3-11.0)
[2023-01-14 20:41] LABS: CALCIUM, SERUM 9.3 mg/dL (8.5-10.1); CARBON DIOXIDE 24 mmol/L (21-32); CHLORIDE 108 mmol/L (98-107); CREATININE 0.8 mg/dL (0.6-1.3); GLUCOSE 115 mg/dL (74-106); POTASSIUM 4.1 mmol/L (3.5-5.1); SODIUM SERUM 139 mmol/L (136-145); UREA NITROGEN, BLOOD 24 mg/dL (7-18)
[2023-01-14 20:46] LABS: ALANINE AMINOTRANSFERASE 50 U/L (12-78); ALBUMIN 1.9 g/dL (3.4-5.0); ALKALINE PHOSPHATASE 159 U/L (46-116); ASPARTATE AMINOTRANSFERASE 30 U/L (15-37); BILIRUBIN,TOTAL 0.5 mg/dL (0.2-1.0); TOTAL PROTEIN, SERUM 6.6 g/dL (6.4-8.2)
[2023-01-14 21:11] LABS: APPEARANCE,URINE CLEAR (CLEAR); BILIRUBIN,URINE NEGATIVE (NEGATIVE); BLOOD, URINE NEGATIVE Ery/uL (NEGATIVE); COLOR,URINE YELLOW (YELLOW); KETONES,URINE TRACE mg/dL (NEGATIVE); LEUKOCYTE ESTERASE ,URINE NEGATIVE (NEGATIVE); NITRITE, URINE NEGATIVE (NEGATIVE); PROTEIN,URINE NEGATIVE (NEGATIVE); UGLUCOSE NEGATIVE (NEGATIVE); UROBILINOGEN,URINE 0.2 EU/dL (0.2)
[2023-01-14 21:25] LABS: AMPHETAMINE, URINE NEGATIVE (NEGATIVE); BARBITURATE, URINE NEGATIVE (NEGATIVE); BENZODIAZEPINE, URINE NEGATIVE (NEGATIVE); CANNABINOID, URINE NEGATIVE (NEGATIVE); COCCAINE, URINE NEGATIVE (NEGATIVE); OPIATE, URINE NEGATIVE (NEGATIVE); PHENCYCLIDINE SCREEN,URINE NEGATIVE (NEGATIVE)
[2023-01-15] MEDS ORDERED: Z GUARD REMEDY 4 OZ OINT TP PRN (01:00)
[2023-01-15] MEDS ORDERED: MAG HYDROX/AL HYDROX/SIMETH 30 ML UDC PO PRN (01:00)
[2023-01-15] MEDS ORDERED: ZOLPIDEM TARTRATE 5 MG TABLET PO PRN (01:00)
[2023-01-15] MEDS ORDERED: ACETAMINOPHEN 325 MG TABLET PO PRN (01:00)
[2023-01-15] MEDS ORDERED: MAGNESIUM HYDROXIDE 30 ML UDC PO PRN (01:00)
[2023-01-15] MEDS ORDERED: ONDANSETRON HCL/PF 4 MG/2 ML VIAL IVP PRN (01:00)
[2023-01-15 04:05] VITALS: BP 121/64; TEMP 98.4; O2SAT 92
[2023-01-15 07:10] LABS: BASOPHILS % (AUTO) 0.2 % (0.0-2.0); EOSINOPHILS # (AUTO) 0.1 K/uL (0.0-0.7); EOSINOPHILS % (AUTO) 0.4 % (0.0-6.0); HEMATOCRIT 28 % (39-51); LYMPHOCYTES # (AUTO) 3.1 K/uL (0.8-4.8); LYMPHOCYTES % (AUTO) 16.4 % (20.0-44.0); MEAN CORPUSCULAR HEMOGLOBIN 29 PG (26.0-33.0); MEAN CORPUSCULAR HGB CONC 32 g/dl (31.0-36.0); MEAN CORPUSCULAR VOLUME 92 fL (80-96); MONOCYTES % (AUTO) 5.1 % (2.0-12.0); NEUTROPHILS # (AUTO) 14.9 K/uL (1.8-8.9); NEUTROPHILS % (AUTO) 77.9 % (43.0-81.0); PLATELET COUNT (AUTO) 751 K/uL (150-450); RED BLOOD CELL COUNT(AUTO) 3.07 MIL/uL (4.5-6.0); RED CELL DISTRIBUTION WIDTH 15.7 % (11.5-15.0); WHITE BLOOD COUNT (AUTO) 19.1 K/uL (4.3-11.0)
[2023-01-15 07:32] LABS: CALCIUM, SERUM 8.9 mg/dL (8.5-10.1); CREATININE 0.6 mg/dL (0.6-1.3); MAGNESIUM 2.5 mg/dL (1.8-2.4); PHOSPHORUS 3.3 mg/dL (2.5-4.9); POTASSIUM 3.7 mmol/L (3.5-5.1)
[2023-01-15 07:57] LABS: THYROID STIMULATING HORMONE 5.026 uIU/mL (0.358-3.74)
[2023-01-15 08:00] VITALS: BP 103/59; TEMP 98.2; O2SAT 97
[2023-01-15] MEDS: PANTOPRAZOLE 40 MG VIAL IV SCH (08:34)
[2023-01-15] MEDS ORDERED: ATOR80TA PO (09:23)
[2023-01-15] MEDS ORDERED: LIDO30AD10 TP (09:23)
[2023-01-15] MEDS ORDERED: DIVA125C5 PO (09:23)
[2023-01-15] MEDS ORDERED: DOXA2TAB2 PO (09:23)
[2023-01-15] MEDS ORDERED: CLOP75TA15 PO (09:23)
[2023-01-15] MEDS ORDERED: BUSP5TAB3 PO (09:23)
[2023-01-15] MEDS ORDERED: SERT25TA PO (09:23)
[2023-01-15] MEDS ORDERED: OLAN5TAB3 PO (09:23)
[2023-01-15] MEDS ORDERED: METO25TA6 PO (09:23)
[2023-01-15] MEDS ORDERED: AMOX250S65 PO (09:23)
[2023-01-15] MEDS ORDERED: TEMA15CA PO (09:23)
[2023-01-15] MEDS ORDERED: ASPI-1169 PO (09:23)
[2023-01-15] MEDS: CLOTRIMAZOLE/BETAMETASONE DIPROPIONATE 15 GM TUBE TP SCH (16:24)
[2023-01-15] MEDS: DIVALPROEX SODIUM 250 MG TABLET.DR PO SCH (18:30)
[2023-01-15] MEDS: OLANZAPINE 5 MG TABLET PO SCH (18:30)
[2023-01-15 19:30] VITALS: BP 115/69; TEMP 97.9; O2SAT 92
[2023-01-15] MEDS ORDERED: OLANZAPINE 10 MG VIAL IM PRN (21:00)
[2023-01-16 06:30] LABS: BASOPHILS % (AUTO) 0.3 % (0.0-2.0); EOSINOPHILS # (AUTO) 0.1 K/uL (0.0-0.7); EOSINOPHILS % (AUTO) 0.7 % (0.0-6.0); HEMATOCRIT 31 % (39-51); HEMOGLOBIN 10.3 g/dL (13.5-17.5); LYMPHOCYTES # (AUTO) 3.1 K/uL (0.8-4.8); LYMPHOCYTES % (AUTO) 21.7 % (20.0-44.0); MEAN CORPUSCULAR HEMOGLOBIN 30 PG (26.0-33.0); MEAN CORPUSCULAR HGB CONC 33 g/dl (31.0-36.0); MEAN CORPUSCULAR VOLUME 92 fL (80-96); MONOCYTES # (AUTO) 0.7 K/uL (0.1-1.30); MONOCYTES % (AUTO) 4.9 % (2.0-12.0); NEUTROPHILS # (AUTO) 10.4 K/uL (1.8-8.9); NEUTROPHILS % (AUTO) 72.4 % (43.0-81.0); PLATELET COUNT (AUTO) 883 K/uL (150-450); RED CELL DISTRIBUTION WIDTH 15.9 % (11.5-15.0); WHITE BLOOD COUNT (AUTO) 14.4 K/uL (4.3-11.0)
[2023-01-16 06:52] LABS: CALCIUM, SERUM 9.4 mg/dL (8.5-10.1); CARBON DIOXIDE 26 mmol/L (21-32); CHLORIDE 110 mmol/L (98-107); CREATININE 0.7 mg/dL (0.6-1.3); GLUCOSE 83 mg/dL (74-106); MAGNESIUM 2.5 mg/dL (1.8-2.4); PHOSPHORUS 3.8 mg/dL (2.5-4.9); POTASSIUM 4.4 mmol/L (3.5-5.1); SODIUM SERUM 143 mmol/L (136-145); UREA NITROGEN, BLOOD 25 mg/dL (7-18)
[2023-01-16 08:00] VITALS: BP 128/62; TEMP 98.4; O2SAT 92
[2023-01-16] MEDS: PANTOPRAZOLE 40 MG VIAL IV SCH ×2 (08:44→08:47)
[2023-01-16] MEDS: CLOTRIMAZOLE/BETAMETASONE DIPROPIONATE 15 GM TUBE TP SCH ×2 (08:47→16:52)
[2023-01-16] MEDS: DIVALPROEX SODIUM 250 MG TABLET.DR PO SCH ×2 (08:48→13:00)
[2023-01-16] MEDS: OLANZAPINE 5 MG TABLET PO SCH (08:49)
[2023-01-16] MEDS: IV D5/0.45 NACL 1,000 ML IV PRN (12:28)
[2023-01-16] MEDS ORDERED: OLANZAPINE 10 MG VIAL IM ONE ×2 (12:30→17:30)
[2023-01-16 16:00] VITALS: BP 123/92; TEMP 98.1; O2SAT 94
[2023-01-16 20:00] VITALS: BP 132/85; TEMP 93; TEMP 98.6; O2SAT 93
[2023-01-16 22:32] LABS: C-REACTIVE PROTEIN 12.53 mg/dL (0.0-0.30)
[2023-01-16 22:42] LABS: RHEUMATOID FACTOR SCREEN NEGATIVE (NEGATIVE)
[2023-01-17] MEDS: IV D5/0.45 NACL 1,000 ML IV PRN ×2 (01:00→13:58)
[2023-01-17 06:53] LABS: BASOPHILS % (AUTO) 0.3 % (0.0-2.0); EOSINOPHILS # (AUTO) 0.2 K/uL (0.0-0.7); EOSINOPHILS % (AUTO) 1.6 % (0.0-6.0); HEMATOCRIT 29 % (39-51); HEMOGLOBIN 9.2 g/dL (13.5-17.5); LYMPHOCYTES # (AUTO) 3.6 K/uL (0.8-4.8); LYMPHOCYTES % (AUTO) 26.2 % (20.0-44.0); MEAN CORPUSCULAR HEMOGLOBIN 29 PG (26.0-33.0); MEAN CORPUSCULAR HGB CONC 32 g/dl (31.0-36.0); MEAN CORPUSCULAR VOLUME 92 fL (80-96); MONOCYTES # (AUTO) 0.7 K/uL (0.1-1.30); MONOCYTES % (AUTO) 5.1 % (2.0-12.0); NEUTROPHILS # (AUTO) 9.2 K/uL (1.8-8.9); NEUTROPHILS % (AUTO) 66.8 % (43.0-81.0); RED BLOOD CELL COUNT(AUTO) 3.13 MIL/uL (4.5-6.0); RED CELL DISTRIBUTION WIDTH 15.3 % (11.5-15.0); WHITE BLOOD COUNT (AUTO) 13.7 K/uL (4.3-11.0)
[2023-01-17 07:04] LABS: CALCIUM, SERUM 8.7 mg/dL (8.5-10.1); CREATININE 0.6 mg/dL (0.6-1.3); PHOSPHORUS 3.1 mg/dL (2.5-4.9)
[2023-01-17 07:30] VITALS: BP 118/69; TEMP 98.1; O2SAT 94
[2023-01-17 07:48] LABS: PLATELET COUNT (AUTO) 929 K/uL (150-450)
[2023-01-17] MEDS: PANTOPRAZOLE 40 MG VIAL IV SCH (08:12)
[2023-01-17] MEDS: CLOTRIMAZOLE/BETAMETASONE DIPROPIONATE 15 GM TUBE TP SCH ×2 (08:14→16:03)
[2023-01-17 12:20] LABS: ANISOCYTOSIS 1+; PLATELET ESTIMATE INCREASED
[2023-01-17] MEDS: ASPIRIN EC 81 MG TABLET.DR PO SCH (14:00)
[2023-01-17] MEDS ORDERED: ALLOPURINOL 100 MG TABLET PO SCH (14:00)
[2023-01-17 16:00] VITALS: BP 111/86; TEMP 98.1; O2SAT 96
[2023-01-17] MEDS: HYDROXYUREA 500 MG CAPSULE PO SCH (16:02)
[2023-01-17 20:00] VITALS: BP 113/64; TEMP 97.8; O2SAT 95
[2023-01-17 20:47] VITALS: BP 113/64; TEMP 97.8; O2SAT 95
[2023-01-18] MEDS: IV D5/0.45 NACL 1,000 ML IV PRN (03:03)
[2023-01-18 07:30] VITALS: BP 129/64; TEMP 98.7; O2SAT 93
[2023-01-18 08:13] LABS: FREE LAMBDA LT CHAIN SERUM 37.6 mg/L (5.7-26.3); IMMUNOGLOBULIN A, SERUM 287 mg/dL (61-437); IMMUNOGLOBULIN G, SERUM 1161 mg/dL (603-1613); IMMUNOGLOBULIN M, SERUM 49 mg/dL (15-143); KAPPA/LAMBDA RATIO SERUM 1.65 (0.26-1.65)
[2023-01-18] MEDS: HYDROXYUREA 500 MG CAPSULE PO SCH (09:00)
[2023-01-18] MEDS ORDERED: ALLOPURINOL 100 MG TABLET PO SCH (09:00)
[2023-01-18] MEDS: PANTOPRAZOLE 40 MG VIAL IV SCH (09:00)
[2023-01-18] MEDS: ASPIRIN EC 81 MG TABLET.DR PO SCH (09:00)
[2023-01-18 09:06] LABS: BASOPHILS # (AUTO) 0.1 K/uL (0.0-0.2); BASOPHILS % (AUTO) 0.6 % (0.0-2.0); EOSINOPHILS # (AUTO) 0.1 K/uL (0.0-0.7); EOSINOPHILS % (AUTO) 0.9 % (0.0-6.0); HEMATOCRIT 29 % (39-51); HEMOGLOBIN 9.1 g/dL (13.5-17.5); LYMPHOCYTES # (AUTO) 2.6 K/uL (0.8-4.8); LYMPHOCYTES % (AUTO) 23.6 % (20.0-44.0); MEAN CORPUSCULAR HEMOGLOBIN 30 PG (26.0-33.0); MEAN CORPUSCULAR HGB CONC 32 g/dl (31.0-36.0); MEAN CORPUSCULAR VOLUME 93 fL (80-96); MONOCYTES # (AUTO) 0.5 K/uL (0.1-1.30); MONOCYTES % (AUTO) 4.9 % (2.0-12.0); NEUTROPHILS # (AUTO) 7.8 K/uL (1.8-8.9); PLATELET COUNT (AUTO) 779 K/uL (150-450); RED BLOOD CELL COUNT(AUTO) 3.06 MIL/uL (4.5-6.0); RED CELL DISTRIBUTION WIDTH 15.8 % (11.5-15.0); WHITE BLOOD COUNT (AUTO) 11.1 K/uL (4.3-11.0)
[2023-01-18 09:27] LABS: CALCIUM, SERUM 8.6 mg/dL (8.5-10.1); CREATININE 0.6 mg/dL (0.6-1.3); POTASSIUM 3.7 mmol/L (3.5-5.1)
[2023-01-18 09:38] LABS: URIC ACID 2.6 mg/dL (2.6-7.2)
[2023-01-18] MEDS: CLOTRIMAZOLE/BETAMETASONE DIPROPIONATE 15 GM TUBE TP SCH ×2 (10:25→17:00)
[2023-01-18] MEDS: LEVOFLOXACIN 500 MG /D5W 100ML 500 MG in PREMIX 1 EA IV SCH (11:06)
[2023-01-18 12:10] LABS: *ANA ANTI-CENTROMERE B AB <0.2 AI (0.0-0.9); *ANA ANTI-DNA(DS) AB, QN <1 IU/mL (0-9); *ANA ANTI-JO-1 <0.2 AI (0.0-0.9); *ANA ANTICHROMATIN ANTIBODY <0.2 AI (0.0-0.9); *ANA RNP ANTIBODIES <0.2 AI (0.0-0.9); *ANA SJOGREN'S ANTI-SS-A <0.2 AI (0.0-0.9); *ANA SJOGREN'S ANTI-SS-B <0.2 AI (0.0-0.9); *ANAANTI-SCLERODERMA-70 AB 0.2 AI (0.0-0.9); *ANASMITH AB <0.2 AI (0.0-0.9)
[2023-01-18] MEDS: LORAZEPAM INJ 2 MG/ML VIAL IV PRN (15:26)
[2023-01-18 16:00] VITALS: BP 101/77; TEMP 98.3; O2SAT 99
[2023-01-18 21:38] VITALS: BP 108/60; TEMP 98; O2SAT 97
[2023-01-19 01:11] LABS: FOLIC ACID 8.2 ng/mL (>3.0)
[2023-01-19] MEDS: IV D5/0.45 NACL 1,000 ML IV PRN ×2 (02:55→23:30)
[2023-01-19 06:13] LABS: BASOPHILS # (AUTO) 0.1 K/uL (0.0-0.2); BASOPHILS % (AUTO) 0.4 % (0.0-2.0); EOSINOPHILS # (AUTO) 0.2 K/uL (0.0-0.7); EOSINOPHILS % (AUTO) 1.4 % (0.0-6.0); HEMATOCRIT 27 % (39-51); LYMPHOCYTES # (AUTO) 3.1 K/uL (0.8-4.8); LYMPHOCYTES % (AUTO) 26.5 % (20.0-44.0); MEAN CORPUSCULAR HEMOGLOBIN 30 PG (26.0-33.0); MEAN CORPUSCULAR HGB CONC 33 g/dl (31.0-36.0); MEAN CORPUSCULAR VOLUME 91 fL (80-96); MONOCYTES # (AUTO) 0.6 K/uL (0.1-1.30); NEUTROPHILS # (AUTO) 7.8 K/uL (1.8-8.9); NEUTROPHILS % (AUTO) 66.7 % (43.0-81.0); PLATELET COUNT (AUTO) 723 K/uL (150-450); RED CELL DISTRIBUTION WIDTH 14.8 % (11.5-15.0); WHITE BLOOD COUNT (AUTO) 11.7 K/uL (4.3-11.0)
[2023-01-19 06:26] LABS: CALCIUM, SERUM 8.5 mg/dL (8.5-10.1); CREATININE 0.6 mg/dL (0.6-1.3); POTASSIUM 3.4 mmol/L (3.5-5.1)
[2023-01-19 07:12] LABS: *SPE A/G RATIO 0.6 (0.7-1.7); *SPE ALBUMIN 1.9 g/dL (2.9-4.4); *SPE ALPHA-1-GLOBULIN 0.3 g/dL (0.0-0.4); *SPE BETA GLOBULIN 0.9 g/dL (0.7-1.3); *SPE GLOBULIN, TOTAL 3.3 g/dL (2.2-3.9); *SPE M-SPIKE Not Observed g/dL (Not Observed); *SPE PROTEIN TOTAL 5.2 g/dL (6.0-8.5); *SPEGAMMA GLOBULIN 1.1 g/dL (0.4-1.8)
[2023-01-19 08:00] VITALS: BP 115/63; TEMP 97.9; O2SAT 98
[2023-01-19 08:06] LABS: HEPATITIS B SURFACE AB Non Reactive (.)
[2023-01-19] MEDS ORDERED: PHARMACY TO CHANGE PO MEDS TO GT/NG XX PRN (10:00)
[2023-01-19] MEDS ORDERED: MAG HYDROX/AL HYDROX/SIMETH 30 ML UDC GT PRN (10:07)
[2023-01-19] MEDS ORDERED: MAGNESIUM HYDROXIDE 30 ML UDC GT PRN (10:09)
[2023-01-19] MEDS: CLOTRIMAZOLE/BETAMETASONE DIPROPIONATE 15 GM TUBE TP SCH ×2 (10:19→17:30)
[2023-01-19] MEDS: ASPIRIN 81 MG TAB.CHEW GT SCH (10:19)
[2023-01-19] MEDS: PANTOPRAZOLE 40 MG VIAL IV SCH (10:23)
[2023-01-19] MEDS: LEVOFLOXACIN 500 MG /D5W 100ML 500 MG in PREMIX 1 EA IV SCH (10:24)
[2023-01-19] MEDS ORDERED: ACETAMINOPHEN 650 MG/20.3 ML UDC GT PRN (10:30)
[2023-01-19] MEDS ORDERED: JEVITY 1.2 CAL 1,000 ML BOTTLE GT PRN (11:00)
[2023-01-19] MEDS: POTASSIUM CL. PREMIX PERIPHER. 50 ML IV SCH ×2 (11:59→13:00)
[2023-01-19 15:17] LABS: INR 1.18 (0.91-1.10); PARTIAL THROMBOPLASTIN TIME 34.3 SEC (24.3-34.3); PROTHROMBIN TIME 12.4 SECS (9.2-11.1)
[2023-01-19 16:00] VITALS: BP 110/66; TEMP 98.2; O2SAT 94
[2023-01-19] MEDS ORDERED: LIDOCAINE 1%-EPI 1:100,000 20 ML VIAL TP STA ×2 (16:47→18:36)
[2023-01-19] MEDS: ARGININE/GLUTAMINE/CALCIUM BMB 1 EACH POWD.PACK GT SCH (17:27)
[2023-01-19 20:03] VITALS: BP 96/83; TEMP 98.2; O2SAT 88
[2023-01-19 23:10] VITALS: O2SAT 92
[2023-01-20] MEDS: LORAZEPAM INJ 2 MG/ML VIAL IV PRN (03:51)
[2023-01-20 06:23] LABS: BASOPHILS % (AUTO) 0.4 % (0.0-2.0); EOSINOPHILS # (AUTO) 0.1 K/uL (0.0-0.7); EOSINOPHILS % (AUTO) 0.8 % (0.0-6.0); HEMATOCRIT 29 % (39-51); HEMOGLOBIN 9.3 g/dL (13.5-17.5); LYMPHOCYTES # (AUTO) 2.6 K/uL (0.8-4.8); LYMPHOCYTES % (AUTO) 22.4 % (20.0-44.0); MEAN CORPUSCULAR HEMOGLOBIN 30 PG (26.0-33.0); MEAN CORPUSCULAR HGB CONC 32 g/dl (31.0-36.0); MEAN CORPUSCULAR VOLUME 93 fL (80-96); MONOCYTES # (AUTO) 0.7 K/uL (0.1-1.30); NEUTROPHILS # (AUTO) 8.2 K/uL (1.8-8.9); NEUTROPHILS % (AUTO) 70.4 % (43.0-81.0); PLATELET COUNT (AUTO) 557 K/uL (150-450); RED BLOOD CELL COUNT(AUTO) 3.15 MIL/uL (4.5-6.0); RED CELL DISTRIBUTION WIDTH 15.1 % (11.5-15.0); WHITE BLOOD COUNT (AUTO) 11.6 K/uL (4.3-11.0)
[2023-01-20 06:55] LABS: CALCIUM, SERUM 8.5 mg/dL (8.5-10.1); CARBON DIOXIDE 24 mmol/L (21-32); CHLORIDE 104 mmol/L (98-107); CREATININE 0.7 mg/dL (0.6-1.3); GLUCOSE 140 mg/dL (74-106); MAGNESIUM 1.8 mg/dL (1.8-2.4); PHOSPHORUS 3.2 mg/dL (2.5-4.9); POTASSIUM 3.6 mmol/L (3.5-5.1); SODIUM SERUM 136 mmol/L (136-145); UREA NITROGEN, BLOOD 10 mg/dL (7-18)
[2023-01-20 07:00] VITALS: BP 106/74; TEMP 97.9; O2SAT 96
[2023-01-20] MEDS ORDERED: PANTOPRAZOLE 40 MG/PACK PACK NG SCH (09:00)
[2023-01-20] MEDS ORDERED: LACT-209 GT (10:47)
[2023-01-20] MEDS ORDERED: LEVO500T90 PO (10:47)
[2023-01-20] MEDS: ASPIRIN 81 MG TAB.CHEW GT SCH (12:24)
[2023-01-20] MEDS: LEVOFLOXACIN 500 MG /D5W 100ML 500 MG in PREMIX 1 EA IV SCH (12:24)
[2023-01-20] MEDS: ARGININE/GLUTAMINE/CALCIUM BMB 1 EACH POWD.PACK GT SCH (12:28)
[2023-01-20] MEDS: CLOTRIMAZOLE/BETAMETASONE DIPROPIONATE 15 GM TUBE TP SCH (12:30)
[2023-01-20 16:00] VITALS: BP 172/133; TEMP 97.2; O2SAT 95
[2023-01-20] MEDS ORDERED: BACITRACIN ZINC OINT (15 GM) 15 GM TUBE TP SCH (17:00)
== END 2023-01-20 17:00 | DRG 177 ==
LOC: ER 19:27 → MED 01-15 01:33
PROVIDERS: ADMIT Internal Medicine; ATTEND Nurse Practitioner Acute Care
PROC: 0DH63UZ Insertion of Feeding Device into Stomach, Percutaneous Approach (ICD-10-PCS; principal; 2023-01-18)
PROC: 07DR3ZX Extraction of Iliac Bone Marrow, Percutaneous Approach, Diagnostic (ICD-10-PCS; 2023-01-19)
DX: J15.69 Pneumonia due to other Gram-negative bacteria (principal); G93.41 Metabolic encephalopathy; F03.911 Unspecified dementia, unspecified severity, with agitation; F03.93 Unspecified dementia, unspecified severity, with mood disturbance; N17.9 Acute kidney failure, unspecified; F05 Delirium due to known physiological condition; E86.0 Dehydration; I10 Essential (primary) hypertension; K29.70 Gastritis, unspecified, without bleeding; Z20.822 Contact with and (suspected) exposure to COVID-19; Z88.8 Allergy status to other drugs, medicaments and biological substances; Z79.82 Long term (current) use of aspirin; Z79.02 Long term (current) use of antithrombotics/antiplatelets; Z79.899 Other long term (current) drug therapy; Z87.891 Personal history of nicotine dependence; R13.10 Dysphagia, unspecified; Z91.85 Personal history of military service; Z66 Do not resuscitate; Z78.1 Physical restraint status; N40.0 Benign prostatic hyperplasia without lower urinary tract symptoms; I25.10 Atherosclerotic heart disease of native coronary artery without angina pectoris; E78.5 Hyperlipidemia, unspecified; D75.839 Thrombocytosis, unspecified; D64.9 Anemia, unspecified; L89.622 Pressure ulcer of left heel, stage 2; L89.612 Pressure ulcer of right heel, stage 2; M21.371 Foot drop, right foot; M21.372 Foot drop, left foot; R45.1 Restlessness and agitation; M62.562 Muscle wasting and atrophy, not elsewhere classified, left lower leg; M62.561 Muscle wasting and atrophy, not elsewhere classified, right lower leg; R82.4 Acetonuria; E88.09 Other disorders of plasma-protein metabolism, not elsewhere classified; E87.6 Hypokalemia; L89.150 Pressure ulcer of sacral region, unstageable; S90.822A Blister (nonthermal), left foot, initial encounter; X58.XXXA Exposure to other specified factors, initial encounter; Y92.9 Unspecified place or not applicable; F39 Unspecified mood [affective] disorder; E86.9 Volume depletion, unspecified; R62.7 Adult failure to thrive
CPT/HCPCS: 36415; 43246; 71045-TC; 76700-TC; 80048-TC; 80053-TC; 80061-TC; 82607-TC; 82728-TC; 82784; 83540-TC; 83615-TC; 83735-TC; 84100-TC; 84155; 84165; 84439-TC; 84443-TC; 84550-TC; 85025-TC; 85610-TC; 85730-TC; 86140-TC; 86225; 86235; 86334; 86431-TC; 86706; 86803; 87040-TC; 87081-TC; 87340; 97112-TC; 97530-TC; A4216; A4223; A6403; C9113; G0378; J0690; J1956; J2060; J3480; J3490; J7050

== ENCOUNTER 2023-02-03 00:29 | Inpatient (IN) | payer MEDICARE, OTHER ==
[~2023-02-03] VITALS: Ht 167.6 cm; Wt 46.3 kg
[~2023-02-03 00:29] MED LIST changes: +ACET-868 GT; +AMOX250S65 PO; +ASPI-1169 GT; +ATOR80TA GT; +BUSP5TAB3 GT; +CLOP75TA15 GT; +DIVA125C5 GT; +DOXA2TAB2 GT; +LACT-209 GT; +LEVO500T90 PO; +LIDO30AD10 TP; +LOSA25TA27 GT; -LOSA25TA27 PO; +METO25TA6 GT; +OLAN5TAB3 GT; +RIVA6CAP11 GT; -RIVA6CAP11 PO; +SERT25TA GT; +TAMS-12 GT; -TAMS-12 PO; +TEMA15CA GT
[2023-02-03 01:29] LABS: BASOPHILS # (AUTO) 0.1 K/uL (0.0-0.2); BASOPHILS % (AUTO) 0.6 % (0.0-2.0); EOSINOPHILS # (AUTO) 0.1 K/uL (0.0-0.7); EOSINOPHILS % (AUTO) 0.5 % (0.0-6.0); HEMATOCRIT 32 % (39-51); HEMOGLOBIN 9.6 g/dL (13.5-17.5); LYMPHOCYTES # (AUTO) 2.5 K/uL (0.8-4.8); LYMPHOCYTES % (AUTO) 13.5 % (20.0-44.0); MEAN CORPUSCULAR HEMOGLOBIN 28 PG (26.0-33.0); MEAN CORPUSCULAR HGB CONC 30 g/dl (31.0-36.0); MEAN CORPUSCULAR VOLUME 93 fL (80-96); MONOCYTES # (AUTO) 0.5 K/uL (0.1-1.30); MONOCYTES % (AUTO) 2.8 % (2.0-12.0); NEUTROPHILS % (AUTO) 82.6 % (43.0-81.0); PLATELET COUNT (AUTO) 557 K/uL (150-450); RED BLOOD CELL COUNT(AUTO) 3.43 MIL/uL (4.5-6.0); RED CELL DISTRIBUTION WIDTH 16.4 % (11.5-15.0); WHITE BLOOD COUNT (AUTO) 18.2 K/uL (4.3-11.0)
[2023-02-03 01:36] LABS: CALCIUM, SERUM 9.6 mg/dL (8.5-10.1); CREATININE 0.8 mg/dL (0.6-1.3); POTASSIUM 3.7 mmol/L (3.5-5.1)
[2023-02-03 01:42] LABS: INR 1.01 (0.91-1.10); PARTIAL THROMBOPLASTIN TIME 20.2 SEC (24.3-34.3); PROTHROMBIN TIME 10.7 SECS (9.2-11.1)
[2023-02-03] MEDS ORDERED: IV NS 0.9% 1,000 ML BAG IV ONE (02:00)
[2023-02-03 03:20] VITALS: BP 113/91; TEMP 97.9; O2SAT 100
[2023-02-03 04:52] VITALS: BP 113/91; TEMP 98; O2SAT 100
[2023-02-03] MEDS ORDERED: ONDANSETRON HCL/PF 4 MG/2 ML VIAL IVP PRN (07:00)
[2023-02-03] MEDS ORDERED: ACETAMINOPHEN 650 MG/SUPP.RECT RC PRN (07:00)
[2023-02-03] MEDS ORDERED: IV D5W 1,000 ML IV PRN (07:00)
[2023-02-03] MEDS ORDERED: AMIN30LI2 GT (07:58)
[2023-02-03] MEDS ORDERED: FERR325T24 GT (07:58)
[2023-02-03] MEDS ORDERED: ZINC50TA39 GT (07:58)
[2023-02-03] MEDS ORDERED: LACT-209 GT (07:58)
[2023-02-03] MEDS ORDERED: ASCO500T22 GT (07:58)
[2023-02-03] MEDS ORDERED: COLL30OI TP (07:58)
[2023-02-03] MEDS ORDERED: DOCU50LI GT (07:58)
[2023-02-03 08:00] VITALS: BP 116/85; TEMP 98.8; O2SAT 94
[2023-02-03] MEDS ORDERED: CEFTRIAXONE 1 G in IV D5W 50 ML IV SCH (08:00)
[2023-02-03] MEDS: ENOXAPARIN SODIUM 40 MG/0.4 ML DISP.SYRIN SQ SCH (09:00)
[2023-02-03] MEDS: Z GUARD REMEDY 4 OZ OINT TP SCH (09:46)
[2023-02-03] MEDS: DAKINS QUARTER STRENGTH (0.125%) 480 ML BOTTLE TOP SCH (09:46)
[2023-02-03] MEDS ORDERED: IV D5/0.45 NACL 1,000 ML IV SCH (11:00)
[2023-02-03 11:40] LABS: ALBUMIN 1.5 g/dL (3.4-5.0); BILIRUBIN,TOTAL 0.7 mg/dL (0.2-1.0); CALCIUM, SERUM 9.4 mg/dL (8.5-10.1); CREATININE 0.7 mg/dL (0.6-1.3); POTASSIUM 3.5 mmol/L (3.5-5.1); TOTAL PROTEIN, SERUM 6.7 g/dL (6.4-8.2)
[2023-02-03] MEDS ORDERED: IV D5W 1,000 ML IV ONE ×3 (12:00→18:30)
[2023-02-03] MEDS ORDERED: VANCOMYCIN 1 GM in IV D5W 250ml IV ONE (13:00)
[2023-02-03] MEDS: busPIRone 5 MG TABLET GT SCH ×2 (13:00→16:50)
[2023-02-03] MEDS: DIVALPROEX SODIUM 125 MG CAP.SPRINK GT SCH ×2 (13:00→16:51)
[2023-02-03] MEDS: MEROPENEM 500 MG in IV NS 0.9% 100 ML IV SCH ×3 (14:15→21:36)
[2023-02-03 15:38] LABS: CALCIUM, SERUM 9.1 mg/dL (8.5-10.1); CREATININE 0.9 mg/dL (0.6-1.3); POTASSIUM 3.4 mmol/L (3.5-5.1)
[2023-02-03 16:01] VITALS: BP 117/98; TEMP 98.1; O2SAT 96
[2023-02-03] MEDS: OLANZAPINE 5 MG TABLET GT SCH (16:51)
[2023-02-03] MEDS: METOPROLOL TARTRATE 25 MG TABLET GT SCH (16:51)
[2023-02-03 20:00] VITALS: BP 110/78; TEMP 99.5; O2SAT 96
[2023-02-03] MEDS ORDERED: LIDOCAINE 1%-EPI 1:100,000 20 ML VIAL TP ONE (20:30)
[2023-02-03] MEDS: ATORVASTATIN 40 MG TABLET GT SCH (22:00)
[2023-02-03] MEDS: TAMSULOSIN 0.4 MG CAP.SR.24H GT SCH (22:00)
[2023-02-04] VITALS: BP 146/71; TEMP 98.3; O2SAT 95
[2023-02-04] MEDS: VANCOMYCIN HCL 0.75 GM in IV D5W 250 ML IV SCH ×2 (00:33→13:49)
[2023-02-04] MEDS ORDERED: SILVER NITRATE APPLICATOR 1 EA BOX TP ONE (01:00)
[2023-02-04 04:00] VITALS: BP 118/73; TEMP 98.6; O2SAT 94
[2023-02-04] MEDS: MEROPENEM 500 MG in IV NS 0.9% 100 ML IV SCH ×3 (05:00→21:49)
[2023-02-04 06:42] LABS: BASOPHILS % (AUTO) 0.2 % (0.0-2.0); EOSINOPHILS # (AUTO) 0.1 K/uL (0.0-0.7); EOSINOPHILS % (AUTO) 0.6 % (0.0-6.0); HEMATOCRIT 30 % (39-51); HEMOGLOBIN 9.3 g/dL (13.5-17.5); LYMPHOCYTES # (AUTO) 2.7 K/uL (0.8-4.8); LYMPHOCYTES % (AUTO) 14.3 % (20.0-44.0); MEAN CORPUSCULAR HEMOGLOBIN 29 PG (26.0-33.0); MEAN CORPUSCULAR HGB CONC 31 g/dl (31.0-36.0); MEAN CORPUSCULAR VOLUME 92 fL (80-96); MONOCYTES # (AUTO) 0.5 K/uL (0.1-1.30); MONOCYTES % (AUTO) 2.5 % (2.0-12.0); NEUTROPHILS # (AUTO) 15.6 K/uL (1.8-8.9); NEUTROPHILS % (AUTO) 82.4 % (43.0-81.0); PLATELET COUNT (AUTO) 638 K/uL (150-450); RED BLOOD CELL COUNT(AUTO) 3.26 MIL/uL (4.5-6.0); RED CELL DISTRIBUTION WIDTH 15.9 % (11.5-15.0); WHITE BLOOD COUNT (AUTO) 18.9 K/uL (4.3-11.0)
[2023-02-04 06:58] LABS: CALCIUM, SERUM 9.2 mg/dL (8.5-10.1); CREATININE 0.8 mg/dL (0.6-1.3); MAGNESIUM 2.5 mg/dL (1.8-2.4); PHOSPHORUS 2.7 mg/dL (2.5-4.9); POTASSIUM 2.9 mmol/L (3.5-5.1)
[2023-02-04 07:00] VITALS: BP 133/69; TEMP 98.1; O2SAT 98
[2023-02-04] MEDS: DOXAZOSIN MESYLATE (4 MG) 4 MG TABLET GT SCH (08:51)
[2023-02-04] MEDS: DOCUSATE SODIUM LIQ 100 MG/10 ML UDC GT SCH (08:51)
[2023-02-04] MEDS: busPIRone 5 MG TABLET GT SCH ×3 (08:51→17:00)
[2023-02-04] MEDS: ASPIRIN 81 MG TAB.CHEW GT SCH (08:51)
[2023-02-04] MEDS: DIVALPROEX SODIUM 125 MG CAP.SPRINK GT SCH ×3 (08:52→17:00)
[2023-02-04] MEDS: FERROUS SULFATE (325 MG) 325 MG/TAB TABLET GT SCH (08:52)
[2023-02-04] MEDS: RIVASTIGMINE TARTRATE 1.5 MG CAPSULE GT SCH ×2 (08:52→17:00)
[2023-02-04] MEDS: LOSARTAN POTASSIUM 25 MG TABLET GT SCH (08:52)
[2023-02-04] MEDS: METOPROLOL TARTRATE 25 MG TABLET GT SCH ×2 (08:52→17:00)
[2023-02-04] MEDS: SERTRALINE HCL 25 MG TABLET GT SCH (08:53)
[2023-02-04] MEDS: CLOPIDOGREL BISULFATE 75 MG TABLET GT SCH (08:53)
[2023-02-04] MEDS: OLANZAPINE 5 MG TABLET GT SCH ×2 (08:53→17:00)
[2023-02-04] MEDS: ASCORBIC ACID 500 MG TABLET GT SCH (08:53)
[2023-02-04] MEDS: ENOXAPARIN SODIUM 40 MG/0.4 ML DISP.SYRIN SQ SCH (09:00)
[2023-02-04] MEDS ORDERED: IV D5W 1,000 ML IV PRN (09:00)
[2023-02-04] MEDS: DAKINS QUARTER STRENGTH (0.125%) 480 ML BOTTLE TOP SCH (10:06)
[2023-02-04] MEDS: Z GUARD REMEDY 4 OZ OINT TP SCH (10:06)
[2023-02-04] MEDS: LIDOCAINE 5% (PATCH) 1 EA PATCH TP SCH (10:07)
[2023-02-04] MEDS: POTASSIUM CL. PREMIX PERIPHER. 50 ML IV SCH ×4 (10:07→13:26)
[2023-02-04] MEDS ORDERED: MINERAL OIL/PETROLATUM,WHITE 120 GM JAR TP PRN (11:30)
[2023-02-04] MEDS ORDERED: MINERAL OIL/PETROL OINT 396 GM JAR TP PRN (12:30)
[2023-02-04 16:00] VITALS: BP 120/82; TEMP 98.2; O2SAT 98
[2023-02-04 20:00] VITALS: BP 122/87; TEMP 98.2; O2SAT 99
[2023-02-04] MEDS: IV D5/0.45 NACL 1,000 ML IV PRN (20:22)
[2023-02-04] MEDS: MUPIROCIN OINT 2% 22 GM TUBE NS SCH (20:24)
[2023-02-04] MEDS: ATORVASTATIN 40 MG TABLET GT SCH (21:49)
[2023-02-04] MEDS: TAMSULOSIN 0.4 MG CAP.SR.24H GT SCH (21:49)
[2023-02-05] MEDS: VANCOMYCIN HCL 0.75 GM in IV D5W 250 ML IV SCH ×2 (01:18→13:10)
[2023-02-05 05:01] VITALS: BP 114/71; TEMP 97.3; O2SAT 97
[2023-02-05] MEDS: MEROPENEM 500 MG in IV NS 0.9% 100 ML IV SCH ×2 (05:47→14:32)
[2023-02-05 06:35] LABS: BASOPHILS % (AUTO) 0.1 % (0.0-2.0); EOSINOPHILS # (AUTO) 0.1 K/uL (0.0-0.7); EOSINOPHILS % (AUTO) 0.8 % (0.0-6.0); HEMATOCRIT 29 % (39-51); HEMOGLOBIN 8.7 g/dL (13.5-17.5); LYMPHOCYTES # (AUTO) 2.6 K/uL (0.8-4.8); LYMPHOCYTES % (AUTO) 14.1 % (20.0-44.0); MEAN CORPUSCULAR HEMOGLOBIN 28 PG (26.0-33.0); MEAN CORPUSCULAR HGB CONC 30 g/dl (31.0-36.0); MEAN CORPUSCULAR VOLUME 94 fL (80-96); MONOCYTES # (AUTO) 0.4 K/uL (0.1-1.30); MONOCYTES % (AUTO) 2.3 % (2.0-12.0); NEUTROPHILS # (AUTO) 15.4 K/uL (1.8-8.9); NEUTROPHILS % (AUTO) 82.7 % (43.0-81.0); PLATELET COUNT (AUTO) 585 K/uL (150-450); RED BLOOD CELL COUNT(AUTO) 3.06 MIL/uL (4.5-6.0); RED CELL DISTRIBUTION WIDTH 16.4 % (11.5-15.0); WHITE BLOOD COUNT (AUTO) 18.7 K/uL (4.3-11.0)
[2023-02-05 07:19] LABS: CALCIUM, SERUM 9.2 mg/dL (8.5-10.1); CREATININE 0.7 mg/dL (0.6-1.3); MAGNESIUM 2.6 mg/dL (1.8-2.4)
[2023-02-05] MEDS: POTASSIUM CL. PREMIX PERIPHER. 50 ML IV SCH ×8 (08:52→15:30)
[2023-02-05] MEDS: ENOXAPARIN SODIUM 40 MG/0.4 ML DISP.SYRIN SQ SCH (09:00)
[2023-02-05] MEDS: RIVASTIGMINE TARTRATE 1.5 MG CAPSULE GT SCH ×2 (09:00→17:00)
[2023-02-05] MEDS: ASPIRIN 81 MG TAB.CHEW GT SCH (09:00)
[2023-02-05] MEDS: FERROUS SULFATE (325 MG) 325 MG/TAB TABLET GT SCH (09:00)
[2023-02-05] MEDS: OLANZAPINE 5 MG TABLET GT SCH ×2 (09:00→17:00)
[2023-02-05] MEDS: LOSARTAN POTASSIUM 25 MG TABLET GT SCH (09:00)
[2023-02-05] MEDS: ASCORBIC ACID 500 MG TABLET GT SCH (09:00)
[2023-02-05] MEDS: DOXAZOSIN MESYLATE (4 MG) 4 MG TABLET GT SCH (09:00)
[2023-02-05] MEDS: busPIRone 5 MG TABLET GT SCH ×3 (09:00→17:00)
[2023-02-05] MEDS: DIVALPROEX SODIUM 125 MG CAP.SPRINK GT SCH ×3 (09:00→17:00)
[2023-02-05] MEDS: CLOPIDOGREL BISULFATE 75 MG TABLET GT SCH (09:00)
[2023-02-05] MEDS: DOCUSATE SODIUM LIQ 100 MG/10 ML UDC GT SCH (09:00)
[2023-02-05] MEDS: SERTRALINE HCL 25 MG TABLET GT SCH (09:00)
[2023-02-05] MEDS: METOPROLOL TARTRATE 25 MG TABLET GT SCH ×2 (09:00→17:00)
[2023-02-05 09:23] VITALS: BP 115/71; TEMP 97.6; O2SAT 99
[2023-02-05] MEDS: DAKINS QUARTER STRENGTH (0.125%) 480 ML BOTTLE TOP SCH (09:39)
[2023-02-05] MEDS: Z GUARD REMEDY 4 OZ OINT TP PRN (09:42)
[2023-02-05] MEDS: MUPIROCIN OINT 2% 22 GM TUBE NS SCH ×2 (09:42→21:36)
[2023-02-05] MEDS: Z GUARD REMEDY 4 OZ OINT TP SCH (09:43)
[2023-02-05] MEDS: LIDOCAINE 5% (PATCH) 1 EA PATCH TP SCH (09:52)
[2023-02-05 16:22] VITALS: BP 115/79; TEMP 97.8; O2SAT 93
[2023-02-05 19:00] VITALS: BP 125/77; TEMP 97.6; O2SAT 97
[2023-02-05 20:00] VITALS: BP 125/77; TEMP 97.6; O2SAT 97
[2023-02-05] MEDS: TAMSULOSIN 0.4 MG CAP.SR.24H GT SCH (21:55)
[2023-02-06] MEDS: MEROPENEM 500 MG in IV NS 0.9% 100 ML IV SCH ×2 (00:09→08:15)
[2023-02-06 04:36] VITALS: BP 110/80; TEMP 97.7; O2SAT 96
[2023-02-06] MEDS: VANCOMYCIN HCL 0.75 GM in IV D5W 250 ML IV SCH ×2 (04:38→16:17)
[2023-02-06] MEDS: IV D5/0.45 NACL 1,000 ML IV PRN (06:28)
[2023-02-06 06:37] VITALS: O2SAT 95
[2023-02-06 07:00] VITALS: BP 113/68; TEMP 97.6; O2SAT 99
[2023-02-06 07:49] LABS: BASOPHILS % (AUTO) 0.1 % (0.0-2.0); EOSINOPHILS # (AUTO) 0.2 K/uL (0.0-0.7); EOSINOPHILS % (AUTO) 1.4 % (0.0-6.0); HEMATOCRIT 29 % (39-51); HEMOGLOBIN 8.7 g/dL (13.5-17.5); LYMPHOCYTES # (AUTO) 2.4 K/uL (0.8-4.8); LYMPHOCYTES % (AUTO) 15.9 % (20.0-44.0); MEAN CORPUSCULAR HEMOGLOBIN 28 PG (26.0-33.0); MEAN CORPUSCULAR HGB CONC 30 g/dl (31.0-36.0); MEAN CORPUSCULAR VOLUME 95 fL (80-96); MONOCYTES # (AUTO) 0.4 K/uL (0.1-1.30); MONOCYTES % (AUTO) 2.5 % (2.0-12.0); NEUTROPHILS # (AUTO) 12.2 K/uL (1.8-8.9); NEUTROPHILS % (AUTO) 80.1 % (43.0-81.0); PLATELET COUNT (AUTO) 550 K/uL (150-450); RED BLOOD CELL COUNT(AUTO) 3.07 MIL/uL (4.5-6.0); WHITE BLOOD COUNT (AUTO) 15.3 K/uL (4.3-11.0)
[2023-02-06] MEDS ORDERED: INSULIN REGULAR, HUMAN 100 UNIT/ML 10 ML VIAL ONE (07:49)
[2023-02-06] MEDS ORDERED: PANTOPRAZOLE 40 MG TABLET.DR PO ONE (07:49)
[2023-02-06 08:15] LABS: ALBUMIN 1.5 g/dL (3.4-5.0); BILIRUBIN,TOTAL 0.4 mg/dL (0.2-1.0); CREATININE 0.6 mg/dL (0.6-1.3); POTASSIUM 3.6 mmol/L (3.5-5.1); TOTAL PROTEIN, SERUM 6.1 g/dL (6.4-8.2)
[2023-02-06] MEDS: DOCUSATE SODIUM LIQ 100 MG/10 ML UDC GT SCH (10:08)
[2023-02-06] MEDS: CLOPIDOGREL BISULFATE 75 MG TABLET GT SCH (10:08)
[2023-02-06] MEDS: FERROUS SULFATE (325 MG) 325 MG/TAB TABLET GT SCH (10:09)
[2023-02-06] MEDS: ASPIRIN 81 MG TAB.CHEW GT SCH (10:09)
[2023-02-06] MEDS: OLANZAPINE 5 MG TABLET GT SCH ×2 (10:09→17:52)
[2023-02-06] MEDS: ASCORBIC ACID 500 MG TABLET GT SCH (10:10)
[2023-02-06] MEDS: LOSARTAN POTASSIUM 25 MG TABLET GT SCH (10:10)
[2023-02-06] MEDS: DOXAZOSIN MESYLATE (4 MG) 4 MG TABLET GT SCH (10:11)
[2023-02-06] MEDS: busPIRone 5 MG TABLET GT SCH ×3 (10:11→17:52)
[2023-02-06] MEDS: METOPROLOL TARTRATE 25 MG TABLET GT SCH ×2 (10:13→17:53)
[2023-02-06] MEDS: SERTRALINE HCL 25 MG TABLET GT SCH (10:13)
[2023-02-06] MEDS: DAKINS QUARTER STRENGTH (0.125%) 480 ML BOTTLE TOP SCH (10:14)
[2023-02-06] MEDS: LIDOCAINE 5% (PATCH) 1 EA PATCH TP SCH (10:14)
[2023-02-06] MEDS: Z GUARD REMEDY 4 OZ OINT TP SCH (10:14)
[2023-02-06] MEDS: MUPIROCIN OINT 2% 22 GM TUBE NS SCH ×2 (10:15→21:23)
[2023-02-06] MEDS: RIVASTIGMINE TARTRATE 1.5 MG CAPSULE GT SCH ×2 (10:25→17:52)
[2023-02-06] MEDS: DIVALPROEX SODIUM 125 MG CAP.SPRINK GT SCH ×3 (10:25→17:52)
[2023-02-06] MEDS: ENOXAPARIN SODIUM 40 MG/0.4 ML DISP.SYRIN SQ SCH (10:26)
[2023-02-06] MEDS ORDERED: VITAL AF 1.2 1,000 ML BOTTLE GT PRN (11:30)
[2023-02-06 16:00] VITALS: BP 104/70; TEMP 97.4; O2SAT 97
[2023-02-06] MEDS: JEVITY 1.2 CAL 1,000 ML BOTTLE GT SCH (17:00)
[2023-02-06] MEDS: ARGININE/GLUTAMINE/CALCIUM BMB 1 EACH POWD.PACK GT SCH (17:53)
[2023-02-06] MEDS: MEROPENEM 1 G in IV NS 0.9% 100 ML IV SCH (19:32)
[2023-02-06 20:00] VITALS: BP 120/71; TEMP 98.3; O2SAT 96
[2023-02-06] MEDS: TAMSULOSIN 0.4 MG CAP.SR.24H GT SCH (21:22)
[2023-02-07] MEDS: VANCOMYCIN HCL 0.75 GM in IV D5W 250 ML IV SCH ×3 (04:00→20:28)
[2023-02-07 06:49] LABS: BASOPHILS % (AUTO) 0.3 % (0.0-2.0); EOSINOPHILS # (AUTO) 0.5 K/uL (0.0-0.7); EOSINOPHILS % (AUTO) 3.2 % (0.0-6.0); HEMATOCRIT 26 % (39-51); HEMOGLOBIN 7.9 g/dL (13.5-17.5); LYMPHOCYTES # (AUTO) 2.3 K/uL (0.8-4.8); LYMPHOCYTES % (AUTO) 16.2 % (20.0-44.0); MEAN CORPUSCULAR HEMOGLOBIN 29 PG (26.0-33.0); MEAN CORPUSCULAR HGB CONC 30 g/dl (31.0-36.0); MEAN CORPUSCULAR VOLUME 95 fL (80-96); MONOCYTES # (AUTO) 0.4 K/uL (0.1-1.30); MONOCYTES % (AUTO) 2.8 % (2.0-12.0); NEUTROPHILS % (AUTO) 77.5 % (43.0-81.0); PLATELET COUNT (AUTO) 512 K/uL (150-450); RED BLOOD CELL COUNT(AUTO) 2.73 MIL/uL (4.5-6.0); RED CELL DISTRIBUTION WIDTH 16.1 % (11.5-15.0); WHITE BLOOD COUNT (AUTO) 14.2 K/uL (4.3-11.0)
[2023-02-07 07:35] LABS: ALANINE AMINOTRANSFERASE 31 U/L (12-78); ALKALINE PHOSPHATASE 138 U/L (46-116); ASPARTATE AMINOTRANSFERASE 49 U/L (15-37); BILIRUBIN,TOTAL 0.3 mg/dL (0.2-1.0); CALCIUM, SERUM 8.6 mg/dL (8.5-10.1); CARBON DIOXIDE 24 mmol/L (21-32); CHLORIDE 116 mmol/L (98-107); CREATININE 0.5 mg/dL (0.6-1.3); GLUCOSE 109 mg/dL (74-106); POTASSIUM 3.7 mmol/L (3.5-5.1); SODIUM SERUM 147 mmol/L (136-145); TOTAL PROTEIN, SERUM 5.6 g/dL (6.4-8.2); UREA NITROGEN, BLOOD 21 mg/dL (7-18)
[2023-02-07 07:54] LABS: ALBUMIN 1.3 g/dL (3.4-5.0)
[2023-02-07] MEDS ORDERED: ZINC SULFATE 220 MG CAPSULE PO SCH (09:00)
[2023-02-07] MEDS ORDERED: MULTIVIT W/MINERALS 1 TAB TABLET PO SCH (09:00)
[2023-02-07] MEDS: DAKINS QUARTER STRENGTH (0.125%) 480 ML BOTTLE TOP SCH (10:08)
[2023-02-07] MEDS: MUPIROCIN OINT 2% 22 GM TUBE NS SCH ×2 (10:09→20:36)
[2023-02-07] MEDS: DIVALPROEX SODIUM 125 MG CAP.SPRINK GT SCH ×3 (10:09→16:40)
[2023-02-07] MEDS: DOCUSATE SODIUM LIQ 100 MG/10 ML UDC GT SCH (10:10)
[2023-02-07] MEDS: LOSARTAN POTASSIUM 25 MG TABLET GT SCH (10:10)
[2023-02-07] MEDS: ASPIRIN 81 MG TAB.CHEW GT SCH (10:11)
[2023-02-07] MEDS: ASCORBIC ACID 500 MG TABLET GT SCH (10:11)
[2023-02-07] MEDS: CLOPIDOGREL BISULFATE 75 MG TABLET GT SCH (10:11)
[2023-02-07] MEDS: ZINC SULFATE 220 MG CAPSULE GT SCH (10:11)
[2023-02-07] MEDS: OLANZAPINE 5 MG TABLET GT SCH ×2 (10:11→16:42)
[2023-02-07] MEDS: SERTRALINE HCL 25 MG TABLET GT SCH (10:12)
[2023-02-07] MEDS: busPIRone 5 MG TABLET GT SCH ×3 (10:12→16:41)
[2023-02-07] MEDS: DOXAZOSIN MESYLATE (4 MG) 4 MG TABLET GT SCH (10:12)
[2023-02-07] MEDS: METOPROLOL TARTRATE 25 MG TABLET GT SCH ×2 (10:13→16:40)
[2023-02-07] MEDS: FERROUS SULFATE (325 MG) 325 MG/TAB TABLET GT SCH (10:14)
[2023-02-07] MEDS: LIDOCAINE 5% (PATCH) 1 EA PATCH TP SCH (10:14)
[2023-02-07] MEDS: MULTIVIT W/MINERALS 1 TAB TABLET GT SCH (10:15)
[2023-02-07] MEDS: Z GUARD REMEDY 4 OZ OINT TP SCH (10:17)
[2023-02-07] MEDS: ENOXAPARIN SODIUM 40 MG/0.4 ML DISP.SYRIN SQ SCH (10:17)
[2023-02-07] MEDS: MEROPENEM 1 G in IV NS 0.9% 100 ML IV SCH ×2 (10:21→21:35)
[2023-02-07] MEDS: ARGININE/GLUTAMINE/CALCIUM BMB 1 EACH POWD.PACK GT SCH ×2 (10:31→16:40)
[2023-02-07] MEDS: RIVASTIGMINE TARTRATE 1.5 MG CAPSULE GT SCH ×2 (10:32→16:40)
[2023-02-07 20:00] VITALS: BP 124/78; TEMP 97.9; O2SAT 98
[2023-02-07] MEDS: TAMSULOSIN 0.4 MG CAP.SR.24H GT SCH (21:29)
[2023-02-07] MEDS: JEVITY 1.2 CAL 1,000 ML BOTTLE GT SCH (21:49)
[2023-02-08 07:00] VITALS: BP 100/62; TEMP 98.1; O2SAT 99
[2023-02-08 07:34] LABS: BASOPHILS % (AUTO) 0.1 % (0.0-2.0); EOSINOPHILS # (AUTO) 0.4 K/uL (0.0-0.7); EOSINOPHILS % (AUTO) 2.8 % (0.0-6.0); HEMATOCRIT 28 % (39-51); HEMOGLOBIN 8.5 g/dL (13.5-17.5); LYMPHOCYTES # (AUTO) 2.5 K/uL (0.8-4.8); MEAN CORPUSCULAR HEMOGLOBIN 28 PG (26.0-33.0); MEAN CORPUSCULAR HGB CONC 31 g/dl (31.0-36.0); MEAN CORPUSCULAR VOLUME 92 fL (80-96); MONOCYTES # (AUTO) 0.4 K/uL (0.1-1.30); MONOCYTES % (AUTO) 2.7 % (2.0-12.0); NEUTROPHILS # (AUTO) 10.7 K/uL (1.8-8.9); NEUTROPHILS % (AUTO) 76.4 % (43.0-81.0); PLATELET COUNT (AUTO) 573 K/uL (150-450); RED BLOOD CELL COUNT(AUTO) 2.99 MIL/uL (4.5-6.0); RED CELL DISTRIBUTION WIDTH 15.4 % (11.5-15.0); WHITE BLOOD COUNT (AUTO) 14.1 K/uL (4.3-11.0)
[2023-02-08 07:46] LABS: ALANINE AMINOTRANSFERASE 29 U/L (12-78); ALKALINE PHOSPHATASE 158 U/L (46-116); ASPARTATE AMINOTRANSFERASE 39 U/L (15-37); BILIRUBIN,TOTAL 0.3 mg/dL (0.2-1.0); CALCIUM, SERUM 8.9 mg/dL (8.5-10.1); CARBON DIOXIDE 27 mmol/L (21-32); CHLORIDE 113 mmol/L (98-107); CREATININE 0.5 mg/dL (0.6-1.3); GLUCOSE 103 mg/dL (74-106); POTASSIUM 4.4 mmol/L (3.5-5.1); SODIUM SERUM 143 mmol/L (136-145); TOTAL PROTEIN, SERUM 5.7 g/dL (6.4-8.2); UREA NITROGEN, BLOOD 21 mg/dL (7-18)
[2023-02-08 07:53] LABS: ALBUMIN 1.4 g/dL (3.4-5.0)
[2023-02-08] MEDS: VANCOMYCIN HCL 0.75 GM in IV D5W 250 ML IV SCH ×2 (08:23→20:34)
[2023-02-08] MEDS: DOCUSATE SODIUM LIQ 100 MG/10 ML UDC GT SCH (09:38)
[2023-02-08] MEDS: ARGININE/GLUTAMINE/CALCIUM BMB 1 EACH POWD.PACK GT SCH ×2 (09:38→17:11)
[2023-02-08] MEDS: LIDOCAINE 5% (PATCH) 1 EA PATCH TP SCH (09:38)
[2023-02-08] MEDS: FERROUS SULFATE (325 MG) 325 MG/TAB TABLET GT SCH (09:39)
[2023-02-08] MEDS: DOXAZOSIN MESYLATE (4 MG) 4 MG TABLET GT SCH (09:39)
[2023-02-08] MEDS: ZINC SULFATE 220 MG CAPSULE GT SCH (09:39)
[2023-02-08] MEDS: ASPIRIN 81 MG TAB.CHEW GT SCH (09:39)
[2023-02-08] MEDS: busPIRone 5 MG TABLET GT SCH ×3 (09:39→16:54)
[2023-02-08] MEDS: OLANZAPINE 5 MG TABLET GT SCH ×2 (09:40→16:54)
[2023-02-08] MEDS: CLOPIDOGREL BISULFATE 75 MG TABLET GT SCH (09:40)
[2023-02-08] MEDS: DIVALPROEX SODIUM 125 MG CAP.SPRINK GT SCH ×3 (09:40→17:11)
[2023-02-08] MEDS: SERTRALINE HCL 25 MG TABLET GT SCH (09:40)
[2023-02-08] MEDS: ASCORBIC ACID 500 MG TABLET GT SCH (09:40)
[2023-02-08] MEDS: RIVASTIGMINE TARTRATE 1.5 MG CAPSULE GT SCH ×2 (09:40→16:54)
[2023-02-08] MEDS: METOPROLOL TARTRATE 25 MG TABLET GT SCH ×2 (09:41→16:55)
[2023-02-08] MEDS: LOSARTAN POTASSIUM 25 MG TABLET GT SCH (09:41)
[2023-02-08] MEDS: ENOXAPARIN SODIUM 40 MG/0.4 ML DISP.SYRIN SQ SCH (09:42)
[2023-02-08] MEDS: MULTIVIT W/MINERALS 1 TAB TABLET GT SCH (09:42)
[2023-02-08] MEDS: MEROPENEM 1 G in IV NS 0.9% 100 ML IV SCH ×2 (09:50→21:41)
[2023-02-08] MEDS: MUPIROCIN OINT 2% 22 GM TUBE NS SCH ×2 (09:50→21:07)
[2023-02-08] MEDS: DAKINS QUARTER STRENGTH (0.125%) 480 ML BOTTLE TOP SCH (09:50)
[2023-02-08] MEDS: Z GUARD REMEDY 4 OZ OINT TP SCH (09:51)
[2023-02-08 16:00] VITALS: BP 102/68; TEMP 98; O2SAT 95
[2023-02-08] MEDS ORDERED: DIVALPROEX SODIUM 125 MG CAP.SPRINK ONE (17:08)
[2023-02-08] MEDS: JEVITY 1.2 CAL 1,000 ML BOTTLE GT SCH (19:15)
[2023-02-08 20:00] VITALS: BP 103/71; TEMP 97.8; O2SAT 100
[2023-02-08] MEDS: TAMSULOSIN 0.4 MG CAP.SR.24H GT SCH (21:58)
[2023-02-09 08:00] VITALS: BP 119/78; TEMP 98.2; O2SAT 96
[2023-02-09] MEDS: VANCOMYCIN HCL 0.75 GM in IV D5W 250 ML IV SCH ×2 (08:08→20:41)
[2023-02-09] MEDS: RIVASTIGMINE TARTRATE 1.5 MG CAPSULE GT SCH ×2 (09:21→16:36)
[2023-02-09] MEDS: DOCUSATE SODIUM LIQ 100 MG/10 ML UDC GT SCH (09:21)
[2023-02-09] MEDS: ASPIRIN 81 MG TAB.CHEW GT SCH (09:21)
[2023-02-09] MEDS: ASCORBIC ACID 500 MG TABLET GT SCH (09:22)
[2023-02-09] MEDS: FERROUS SULFATE (325 MG) 325 MG/TAB TABLET GT SCH (09:22)
[2023-02-09] MEDS: SERTRALINE HCL 25 MG TABLET GT SCH (09:22)
[2023-02-09] MEDS: DIVALPROEX SODIUM 125 MG CAP.SPRINK GT SCH ×3 (09:22→16:36)
[2023-02-09] MEDS: CLOPIDOGREL BISULFATE 75 MG TABLET GT SCH (09:22)
[2023-02-09] MEDS: METOPROLOL TARTRATE 25 MG TABLET GT SCH ×2 (09:23→16:38)
[2023-02-09] MEDS: ZINC SULFATE 220 MG CAPSULE GT SCH (09:23)
[2023-02-09] MEDS: DOXAZOSIN MESYLATE (4 MG) 4 MG TABLET GT SCH (09:23)
[2023-02-09] MEDS: busPIRone 5 MG TABLET GT SCH ×3 (09:23→16:36)
[2023-02-09] MEDS: LOSARTAN POTASSIUM 25 MG TABLET GT SCH (09:23)
[2023-02-09] MEDS: ENOXAPARIN SODIUM 40 MG/0.4 ML DISP.SYRIN SQ SCH (09:24)
[2023-02-09] MEDS: LIDOCAINE 5% (PATCH) 1 EA PATCH TP SCH (09:24)
[2023-02-09] MEDS: OLANZAPINE 5 MG TABLET GT SCH ×2 (09:29→16:36)
[2023-02-09] MEDS: MEROPENEM 1 G in IV NS 0.9% 100 ML IV SCH ×2 (09:29→21:41)
[2023-02-09] MEDS: MUPIROCIN OINT 2% 22 GM TUBE NS SCH ×2 (09:47→21:08)
[2023-02-09] MEDS: DAKINS QUARTER STRENGTH (0.125%) 480 ML BOTTLE TOP SCH (09:47)
[2023-02-09] MEDS: Z GUARD REMEDY 4 OZ OINT TP SCH (09:48)
[2023-02-09] MEDS: ARGININE/GLUTAMINE/CALCIUM BMB 1 EACH POWD.PACK GT SCH ×2 (10:00→16:36)
[2023-02-09] MEDS: MULTIVIT W/MINERALS 1 TAB TABLET GT SCH (11:29)
[2023-02-09] MEDS: JEVITY 1.2 CAL 1,000 ML BOTTLE GT SCH (15:02)
[2023-02-09 16:10] VITALS: BP 92/60; TEMP 98.1; O2SAT 92
[2023-02-09 19:00] VITALS: BP 100/62; TEMP 97.9; O2SAT 100
[2023-02-09] MEDS: TAMSULOSIN 0.4 MG CAP.SR.24H GT SCH (21:40)
[2023-02-10 07:00] VITALS: BP 100/61; TEMP 97.9; O2SAT 94
[2023-02-10 07:42] LABS: CALCIUM, SERUM 8.7 mg/dL (8.5-10.1); CARBON DIOXIDE 30 mmol/L (21-32); CHLORIDE 108 mmol/L (98-107); CREATININE 0.5 mg/dL (0.6-1.3); GLUCOSE 115 mg/dL (74-106); POTASSIUM 4.1 mmol/L (3.5-5.1); SODIUM SERUM 141 mmol/L (136-145); UREA NITROGEN, BLOOD 25 mg/dL (7-18)
[2023-02-10 07:46] LABS: BASOPHILS % (AUTO) 0.2 % (0.0-2.0); EOSINOPHILS # (AUTO) 0.4 K/uL (0.0-0.7); EOSINOPHILS % (AUTO) 2.9 % (0.0-6.0); HEMATOCRIT 28 % (39-51); HEMOGLOBIN 8.6 g/dL (13.5-17.5); LYMPHOCYTES # (AUTO) 2.6 K/uL (0.8-4.8); LYMPHOCYTES % (AUTO) 18.6 % (20.0-44.0); MEAN CORPUSCULAR HEMOGLOBIN 28 PG (26.0-33.0); MEAN CORPUSCULAR HGB CONC 31 g/dl (31.0-36.0); MEAN CORPUSCULAR VOLUME 91 fL (80-96); MONOCYTES # (AUTO) 0.4 K/uL (0.1-1.30); MONOCYTES % (AUTO) 3.1 % (2.0-12.0); NEUTROPHILS # (AUTO) 10.5 K/uL (1.8-8.9); NEUTROPHILS % (AUTO) 75.2 % (43.0-81.0); PLATELET COUNT (AUTO) 612 K/uL (150-450); RED BLOOD CELL COUNT(AUTO) 3.05 MIL/uL (4.5-6.0)
[2023-02-10] MEDS: ASPIRIN 81 MG TAB.CHEW GT SCH (08:14)
[2023-02-10] MEDS: LIDOCAINE 5% (PATCH) 1 EA PATCH TP SCH (08:14)
[2023-02-10] MEDS: DOCUSATE SODIUM LIQ 100 MG/10 ML UDC GT SCH (08:14)
[2023-02-10] MEDS: FERROUS SULFATE (325 MG) 325 MG/TAB TABLET GT SCH (08:14)
[2023-02-10] MEDS: RIVASTIGMINE TARTRATE 1.5 MG CAPSULE GT SCH ×2 (08:14→16:31)
[2023-02-10] MEDS: ZINC SULFATE 220 MG CAPSULE GT SCH (08:15)
[2023-02-10] MEDS: SERTRALINE HCL 25 MG TABLET GT SCH (08:15)
[2023-02-10] MEDS: OLANZAPINE 5 MG TABLET GT SCH ×2 (08:15→16:31)
[2023-02-10] MEDS: MULTIVIT W/MINERALS 1 TAB TABLET GT SCH (08:16)
[2023-02-10] MEDS: ASCORBIC ACID 500 MG TABLET GT SCH (08:16)
[2023-02-10] MEDS: CLOPIDOGREL BISULFATE 75 MG TABLET GT SCH (08:16)
[2023-02-10] MEDS: busPIRone 5 MG TABLET GT SCH ×3 (08:16→16:31)
[2023-02-10] MEDS: DIVALPROEX SODIUM 125 MG CAP.SPRINK GT SCH ×3 (08:18→16:31)
[2023-02-10] MEDS: METOPROLOL TARTRATE 25 MG TABLET GT SCH ×2 (08:21→16:54)
[2023-02-10] MEDS: DOXAZOSIN MESYLATE (4 MG) 4 MG TABLET GT SCH (08:22)
[2023-02-10] MEDS: LOSARTAN POTASSIUM 25 MG TABLET GT SCH (08:22)
[2023-02-10] MEDS: ARGININE/GLUTAMINE/CALCIUM BMB 1 EACH POWD.PACK GT SCH ×2 (08:22→16:54)
[2023-02-10] MEDS: MUPIROCIN OINT 2% 22 GM TUBE NS SCH ×2 (08:31→21:02)
[2023-02-10] MEDS: Z GUARD REMEDY 4 OZ OINT TP PRN (08:32)
[2023-02-10] MEDS: VANCOMYCIN HCL 0.75 GM in IV D5W 250 ML IV SCH ×2 (08:32→19:58)
[2023-02-10] MEDS: MEROPENEM 1 G in IV NS 0.9% 100 ML IV SCH ×2 (08:32→21:02)
[2023-02-10] MEDS: DAKINS QUARTER STRENGTH (0.125%) 480 ML BOTTLE TOP SCH (08:32)
[2023-02-10] MEDS: Z GUARD REMEDY 4 OZ OINT TP SCH (08:34)
[2023-02-10] MEDS: ENOXAPARIN SODIUM 40 MG/0.4 ML DISP.SYRIN SQ SCH (08:39)
[2023-02-10] MEDS: JEVITY 1.2 CAL 1,000 ML BOTTLE GT SCH (13:27)
[2023-02-10 16:00] VITALS: BP 95/57; TEMP 97.6; O2SAT 95
[2023-02-10 20:00] VITALS: BP 118/68; TEMP 98.2; O2SAT 100
[2023-02-10] MEDS: TAMSULOSIN 0.4 MG CAP.SR.24H GT SCH (22:13)
[2023-02-11] MEDS ORDERED: LIDOCAINE 2%-EPI 1:100,000 30 ML VIAL TP ONE (01:30)
[2023-02-11] MEDS: JEVITY 1.2 CAL 1,000 ML BOTTLE GT SCH (04:46)
[2023-02-11 09:00] VITALS: BP 95/71
[2023-02-11] MEDS: Z GUARD REMEDY 4 OZ OINT TP SCH (09:00)
[2023-02-11] MEDS: VANCOMYCIN HCL 0.75 GM in IV D5W 250 ML IV SCH (09:00)
[2023-02-11] MEDS: METOPROLOL TARTRATE 25 MG TABLET GT SCH (09:00)
[2023-02-11] MEDS: DOXAZOSIN MESYLATE (4 MG) 4 MG TABLET GT SCH (09:00)
[2023-02-11] MEDS: LOSARTAN POTASSIUM 25 MG TABLET GT SCH (09:00)
[2023-02-11] MEDS: DOCUSATE SODIUM LIQ 100 MG/10 ML UDC GT SCH (09:30)
[2023-02-11] MEDS: LIDOCAINE 5% (PATCH) 1 EA PATCH TP SCH (09:30)
[2023-02-11] MEDS: ASPIRIN 81 MG TAB.CHEW GT SCH (09:30)
[2023-02-11] MEDS: DIVALPROEX SODIUM 125 MG CAP.SPRINK GT SCH ×2 (09:31→12:07)
[2023-02-11] MEDS: MULTIVIT W/MINERALS 1 TAB TABLET GT SCH (09:31)
[2023-02-11] MEDS: OLANZAPINE 5 MG TABLET GT SCH (09:31)
[2023-02-11] MEDS: ZINC SULFATE 220 MG CAPSULE GT SCH (09:31)
[2023-02-11] MEDS: CLOPIDOGREL BISULFATE 75 MG TABLET GT SCH (09:31)
[2023-02-11] MEDS: SERTRALINE HCL 25 MG TABLET GT SCH (09:31)
[2023-02-11] MEDS: FERROUS SULFATE (325 MG) 325 MG/TAB TABLET GT SCH (09:31)
[2023-02-11] MEDS: ASCORBIC ACID 500 MG TABLET GT SCH (09:31)
[2023-02-11] MEDS: ARGININE/GLUTAMINE/CALCIUM BMB 1 EACH POWD.PACK GT SCH (09:34)
[2023-02-11] MEDS: ENOXAPARIN SODIUM 40 MG/0.4 ML DISP.SYRIN SQ SCH (09:36)
[2023-02-11] MEDS: DAKINS QUARTER STRENGTH (0.125%) 480 ML BOTTLE TOP SCH (09:37)
[2023-02-11] MEDS: Z GUARD REMEDY 4 OZ OINT TP PRN (09:37)
[2023-02-11] MEDS: MUPIROCIN OINT 2% 22 GM TUBE NS SCH (09:38)
[2023-02-11] MEDS: MEROPENEM 1 G in IV NS 0.9% 100 ML IV SCH (10:02)
[2023-02-11] MEDS: busPIRone 5 MG TABLET GT SCH ×2 (10:03→12:07)
[2023-02-11] MEDS: RIVASTIGMINE TARTRATE 1.5 MG CAPSULE GT SCH (10:03)
[2023-02-11] MEDS ORDERED: QUETIAPINE FUMARATE 25 MG TABLET GT ONE (13:00)
[2023-02-11] MEDS ORDERED: VANC750P13 IV (14:25)
[2023-02-11] MEDS ORDERED: CEFT1VIA55 IJ (14:25)
[2023-02-11] MEDS ORDERED: CEFTAZIDIME 1 G in IV D5W 50 ML IV SCH (20:00)
== END 2023-02-11 18:20 | DRG 356 ==
LOC: ER 00:37 → MED 02:47
PROVIDERS: ADMIT Internal Medicine; ATTEND Nurse Practitioner Acute Care
PROC: 0QB10ZZ Excision of Sacrum, Open Approach (ICD-10-PCS; principal; 2023-02-04)
PROC: 0DH63UZ Insertion of Feeding Device into Stomach, Percutaneous Approach (ICD-10-PCS; 2023-02-05)
PROC: 0JBR0ZZ Excision of Left Foot Subcutaneous Tissue and Fascia, Open Approach (ICD-10-PCS; 2023-02-09)
PROC: 05HC33Z Insertion of Infusion Device into Left Basilic Vein, Percutaneous Approach (ICD-10-PCS; 2023-02-11)
DX: K94.23 Gastrostomy malfunction (principal); A41.9 Sepsis, unspecified organism; E43 Unspecified severe protein-calorie malnutrition; L89.154 Pressure ulcer of sacral region, stage 4; J15.9 Unspecified bacterial pneumonia; J69.0 Pneumonitis due to inhalation of food and vomit; E87.0 Hyperosmolality and hypernatremia; E44.0 Moderate protein-calorie malnutrition; Z16.24 Resistance to multiple antibiotics; M46.28 Osteomyelitis of vertebra, sacral and sacrococcygeal region; E87.1 Hypo-osmolality and hyponatremia; L02.212 Cutaneous abscess of back [any part, except buttock and flank]; E86.0 Dehydration; K29.70 Gastritis, unspecified, without bleeding; I10 Essential (primary) hypertension; I25.10 Atherosclerotic heart disease of native coronary artery without angina pectoris; L97.529 Non-pressure chronic ulcer of other part of left foot with unspecified severity; M89.8X9 Other specified disorders of bone, unspecified site; L97.519 Non-pressure chronic ulcer of other part of right foot with unspecified severity; R13.10 Dysphagia, unspecified; E78.5 Hyperlipidemia, unspecified; N40.0 Benign prostatic hyperplasia without lower urinary tract symptoms; G62.9 Polyneuropathy, unspecified; R26.9 Unspecified abnormalities of gait and mobility; Z88.8 Allergy status to other drugs, medicaments and biological substances; Z79.01 Long term (current) use of anticoagulants; Z79.82 Long term (current) use of aspirin; Z79.02 Long term (current) use of antithrombotics/antiplatelets; Z79.899 Other long term (current) drug therapy; Z87.891 Personal history of nicotine dependence; Y95 Nosocomial condition; L89.611 Pressure ulcer of right heel, stage 1; L89.621 Pressure ulcer of left heel, stage 1; F03.C0 Unspecified dementia, severe, without behavioral disturbance, psychotic disturbance, mood disturbance, and anxiety; F29 Unspecified psychosis not due to a substance or known physiological condition; E88.09 Other disorders of plasma-protein metabolism, not elsewhere classified; D75.839 Thrombocytosis, unspecified; D64.9 Anemia, unspecified; S90.32XA Contusion of left foot, initial encounter; X58.XXXA Exposure to other specified factors, initial encounter; Y92.9 Unspecified place or not applicable; Z22.322 Carrier or suspected carrier of Methicillin resistant Staphylococcus aureus
CPT/HCPCS: 36410; 36415; 43246; 71045-TC; 80048-TC; 80053-TC; 80202-TC; 83735-TC; 84100-TC; 84132-TC; 85025-TC; 85730-TC; 86850-TC; 87040-TC; 87081-TC; 87086-TC; 88304-TC; 88312-TC; 93307-TC; A4223; A6253; A6403; G0378; J0696; J0713; J1650; J1815; J2185; J3370; J3480; J3490; J7030; J7040; J7042; J7050; J7060; J7070

== ENCOUNTER 2023-02-22 22:59 | Emergency (ER) | payer MEDICARE, OTHER ==
[~2023-02-22] VITALS: Ht 170.2 cm; Wt 56.7 kg
[~2023-02-22 22:59] MED LIST changes: -ACET-2605 PO; -ACET-868 PO; +AMIN30LI2 GT; -AMOX250S65 PO; +ASCO500T22 GT; -ASPI-1169 PO; -ATOR80TA PO; +CEFT1VIA55 IJ; -CLOP75TA15 PO; +COLL30OI TP; +DOCU50LI GT; -FAMO20TA8 PO; +FERR325T24 GT; -LEVO500T90 PO; -MAGN400O6 PO; -METO25TA20 PO; -SENN-261 PO; +VANC750P13 IV; +ZINC50TA39 GT
[2023-02-22 23:22] VITALS: TEMP 97
[2023-02-23] MEDS ORDERED: LORAZEPAM INJ 2 MG/ML VIAL IM ONE (00:30)
[2023-02-23] MEDS ORDERED: LORAZEPAM 1 MG TABLET ONE (00:37)
[2023-02-23] MEDS: LORAZEPAM 1 MG TABLET PO ONE (00:38)
[2023-02-23 02:24] LABS: BASOPHILS # (AUTO) 0.1 K/uL (0.0-0.2); BASOPHILS % (AUTO) 0.3 % (0.0-2.0); EOSINOPHILS # (AUTO) 0.5 K/uL (0.0-0.7); EOSINOPHILS % (AUTO) 3.3 % (0.0-6.0); HEMATOCRIT 30 % (39-51); HEMOGLOBIN 9.8 g/dL (13.5-17.5); LYMPHOCYTES % (AUTO) 20.9 % (20.0-44.0); MEAN CORPUSCULAR HEMOGLOBIN 29 PG (26.0-33.0); MEAN CORPUSCULAR HGB CONC 32 g/dl (31.0-36.0); MEAN CORPUSCULAR VOLUME 89 fL (80-96); MONOCYTES # (AUTO) 0.6 K/uL (0.1-1.30); MONOCYTES % (AUTO) 4.4 % (2.0-12.0); NEUTROPHILS # (AUTO) 10.2 K/uL (1.8-8.9); NEUTROPHILS % (AUTO) 71.1 % (43.0-81.0); PLATELET COUNT (AUTO) 421 K/uL (150-450); RED BLOOD CELL COUNT(AUTO) 3.42 MIL/uL (4.5-6.0); WHITE BLOOD COUNT (AUTO) 14.4 K/uL (4.3-11.0)
[2023-02-23 02:32] LABS: INR 1.04 (0.91-1.10); PARTIAL THROMBOPLASTIN TIME 31.4 SEC (24.3-34.3)
[2023-02-23 02:37] LABS: CALCIUM, SERUM 8.7 mg/dL (8.5-10.1); CARBON DIOXIDE 27 mmol/L (21-32); CHLORIDE 103 mmol/L (98-107); CREATININE 0.5 mg/dL (0.6-1.3); GLUCOSE 100 mg/dL (74-106); SODIUM SERUM 135 mmol/L (136-145); UREA NITROGEN, BLOOD 21 mg/dL (7-18)
[2023-02-23 11:10] VITALS: BP 96/70; O2SAT 95
== END 2023-02-23 11:11 | disposition home or self-care (01) ==
LOC: ER 23:00
DX: T82.514A Breakdown (mechanical) of infusion catheter, initial encounter (principal); I10 Essential (primary) hypertension; Z88.8 Allergy status to other drugs, medicaments and biological substances; Z79.899 Other long term (current) drug therapy
CPT/HCPCS: 36415; 80048-TC; 85025-TC; 85730-TC; 86850-TC

== ENCOUNTER 2023-04-28 20:03 | Inpatient (IN) | payer MEDICARE, OTHER ==
[~2023-04-28] VITALS: Ht 167.6 cm; Wt 43.5 kg
[2023-04-28] MEDS ORDERED: ONDANSETRON HCL/PF 4 MG/2 ML VIAL ONE (20:18)
[2023-04-28] MEDS ORDERED: HALOPERIDOL LACTATE INJ 5 MG/ML VIAL ONE (20:18)
[2023-04-28] MEDS ORDERED: MORPHINE SULFATE INJ 4 MG/ML DISP.SYRIN ONE (20:18)
[2023-04-28] MEDS: HALOPERIDOL LACTATE INJ 5 MG/ML VIAL IM ONE (20:35)
[2023-04-28] MEDS: ONDANSETRON HCL/PF 4 MG/2 ML VIAL IVP ONE (20:35)
[2023-04-28] MEDS: MORPHINE SULFATE INJ 2 MG/ML DISP.SYRIN IV ONE (20:35)
[2023-04-28 20:37] LABS: BASOPHILS # (AUTO) 0.1 K/uL (0.0-0.2); BASOPHILS % (AUTO) 1.4 % (0.0-2.0); EOSINOPHILS # (AUTO) 0.5 K/uL (0.0-0.7); EOSINOPHILS % (AUTO) 5.8 % (0.0-6.0); HEMATOCRIT 38 % (39-51); HEMOGLOBIN 11.6 g/dL (13.5-17.5); LYMPHOCYTES # (AUTO) 3.3 K/uL (0.8-4.8); LYMPHOCYTES % (AUTO) 36.2 % (20.0-44.0); MEAN CORPUSCULAR HEMOGLOBIN 29 PG (26.0-33.0); MEAN CORPUSCULAR HGB CONC 31 g/dl (31.0-36.0); MEAN CORPUSCULAR VOLUME 93 fL (80-96); MONOCYTES # (AUTO) 0.4 K/uL (0.1-1.30); MONOCYTES % (AUTO) 4.2 % (2.0-12.0); NEUTROPHILS # (AUTO) 4.8 K/uL (1.8-8.9); NEUTROPHILS % (AUTO) 52.4 % (43.0-81.0); PLATELET COUNT (AUTO) 292 K/uL (150-450); RED BLOOD CELL COUNT(AUTO) 4.05 MIL/uL (4.5-6.0); RED CELL DISTRIBUTION WIDTH 21.1 % (11.5-15.0); WHITE BLOOD COUNT (AUTO) 9.1 K/uL (4.3-11.0)
[2023-04-28 20:46] LABS: CALCIUM, SERUM 8.9 mg/dL (8.5-10.1); CARBON DIOXIDE 33 mmol/L (21-32); CHLORIDE 125 mmol/L (98-107); CREATININE 0.8 mg/dL (0.6-1.3); GLUCOSE 70 mg/dL (74-106); UREA NITROGEN, BLOOD 45 mg/dL (7-18)
[2023-04-28 20:49] LABS: INR 0.96 (0.91-1.10); PARTIAL THROMBOPLASTIN TIME 27.8 SEC (24.3-34.3); PROTHROMBIN TIME 9.9 SECS (9.2-11.1)
[2023-04-28 20:51] LABS: SODIUM SERUM 164 mmol/L (136-145)
[2023-04-28] MEDS: IV NS 0.9% 1,000 ML BAG IV ONE (21:10)
[2023-04-29] MEDS ORDERED: MORPHINE SULFATE INJ 2 MG/ML DISP.SYRIN IV PRN (01:00)
[2023-04-29] MEDS ORDERED: MAG HYDROX/AL HYDROX/SIMETH 30 ML UDC PO PRN (01:00)
[2023-04-29] MEDS ORDERED: ZOLPIDEM TARTRATE 5 MG TABLET PO PRN (01:00)
[2023-04-29] MEDS ORDERED: ACETAMINOPHEN 325 MG TABLET PO PRN (01:00)
[2023-04-29] MEDS ORDERED: HYDROCODONE/APAP 5/325MG TABLET PO PRN (01:00)
[2023-04-29] MEDS ORDERED: ONDANSETRON HCL/PF 4 MG/2 ML VIAL IVP PRN (01:00)
[2023-04-29] MEDS ORDERED: MAGNESIUM HYDROXIDE 30 ML UDC PO PRN (01:00)
[2023-04-29] MEDS: IV D5W 1,000 ML IV PRN (05:22)
[2023-04-29 06:46] LABS: BASOPHILS # (AUTO) 0.1 K/uL (0.0-0.2); BASOPHILS % (AUTO) 0.7 % (0.0-2.0); EOSINOPHILS # (AUTO) 0.4 K/uL (0.0-0.7); EOSINOPHILS % (AUTO) 4.1 % (0.0-6.0); HEMATOCRIT 34 % (39-51); HEMOGLOBIN 10.7 g/dL (13.5-17.5); LYMPHOCYTES # (AUTO) 2.8 K/uL (0.8-4.8); LYMPHOCYTES % (AUTO) 31.7 % (20.0-44.0); MEAN CORPUSCULAR HEMOGLOBIN 30 PG (26.0-33.0); MEAN CORPUSCULAR HGB CONC 31 g/dl (31.0-36.0); MEAN CORPUSCULAR VOLUME 95 fL (80-96); MONOCYTES # (AUTO) 0.4 K/uL (0.1-1.30); NEUTROPHILS # (AUTO) 5.1 K/uL (1.8-8.9); NEUTROPHILS % (AUTO) 58.5 % (43.0-81.0); PLATELET COUNT (AUTO) 191 K/uL (150-450); RED BLOOD CELL COUNT(AUTO) 3.61 MIL/uL (4.5-6.0); WHITE BLOOD COUNT (AUTO) 8.7 K/uL (4.3-11.0)
[2023-04-29 07:34] LABS: CALCIUM, SERUM 8.8 mg/dL (8.5-10.1); CREATININE 0.7 mg/dL (0.6-1.3); MAGNESIUM 2.6 mg/dL (1.8-2.4); PHOSPHORUS 2.9 mg/dL (2.5-4.9); POTASSIUM 3.9 mmol/L (3.5-5.1)
[2023-04-29 08:00] VITALS: BP 123/70; TEMP 98.5; O2SAT 95
[2023-04-29] MEDS: PANTOPRAZOLE 40 MG VIAL IV SCH (09:00)
[2023-04-29] MEDS: IV D5W 1,000 ML IV ONE (11:30)
[2023-04-29] MEDS: DAKINS QUARTER STRENGTH (0.125%) 480 ML BOTTLE TOP SCH (12:00)
[2023-04-29] MEDS ORDERED: ASCO500T10 GT (12:43)
[2023-04-29] MEDS ORDERED: MULT-213 GT (12:43)
[2023-04-29] MEDS ORDERED: WHEY237L GT (12:43)
[2023-04-29 16:19] LABS: CALCIUM, SERUM 8.8 mg/dL (8.5-10.1); CREATININE 0.8 mg/dL (0.6-1.3)
[2023-04-29 16:38] LABS: POTASSIUM 4.1 mmol/L (3.5-5.1)
[2023-04-29] MEDS: CLOTRIMAZOLE 1% 15 GM TUBE TP SCH (17:48)
[2023-04-29 20:00] VITALS: BP_SYST 111; BP_SYST 121; BP_DIAS 80; TEMP 97.9; O2SAT 99
[2023-04-30] MEDS: IV D5W 1,000 ML IV PRN ×2 (01:56→14:00)
[2023-04-30] MEDS: Z GUARD REMEDY 4 OZ OINT TP PRN (02:02)
[2023-04-30 04:08] VITALS: O2SAT 99
[2023-04-30 06:38] LABS: BASOPHILS # (AUTO) 0.1 K/uL (0.0-0.2); BASOPHILS % (AUTO) 0.4 % (0.0-2.0); EOSINOPHILS # (AUTO) 0.4 K/uL (0.0-0.7); EOSINOPHILS % (AUTO) 2.8 % (0.0-6.0); HEMATOCRIT 30 % (39-51); HEMOGLOBIN 9.5 g/dL (13.5-17.5); LYMPHOCYTES # (AUTO) 3.5 K/uL (0.8-4.8); LYMPHOCYTES % (AUTO) 26.8 % (20.0-44.0); MEAN CORPUSCULAR HEMOGLOBIN 30 PG (26.0-33.0); MEAN CORPUSCULAR HGB CONC 32 g/dl (31.0-36.0); MEAN CORPUSCULAR VOLUME 94 fL (80-96); MONOCYTES # (AUTO) 0.6 K/uL (0.1-1.30); MONOCYTES % (AUTO) 4.4 % (2.0-12.0); NEUTROPHILS # (AUTO) 8.5 K/uL (1.8-8.9); NEUTROPHILS % (AUTO) 65.6 % (43.0-81.0); PLATELET COUNT (AUTO) 196 K/uL (150-450); RED BLOOD CELL COUNT(AUTO) 3.22 MIL/uL (4.5-6.0); RED CELL DISTRIBUTION WIDTH 19.9 % (11.5-15.0); WHITE BLOOD COUNT (AUTO) 12.9 K/uL (4.3-11.0)
[2023-04-30 07:31] LABS: ALBUMIN 1.8 g/dL (3.4-5.0); BILIRUBIN,TOTAL 0.5 mg/dL (0.2-1.0); CALCIUM, SERUM 8.5 mg/dL (8.5-10.1); CREATININE 0.7 mg/dL (0.6-1.3); MAGNESIUM 2.4 mg/dL (1.8-2.4); POTASSIUM 3.5 mmol/L (3.5-5.1); TOTAL PROTEIN, SERUM 6.9 g/dL (6.4-8.2)
[2023-04-30] MEDS: NEUTRA PHOS 1 POWD.PACKET GT ONE (09:40)
[2023-04-30] MEDS: CEFAZOLIN 1 GM in IV D5W 50 ML IV SCH (12:24)
[2023-04-30 13:00] VITALS: BP 109/66; TEMP 97.9; O2SAT 98
[2023-04-30] MEDS: JEVITY 1.2 CAL 1,000 ML BOTTLE GT PRN (13:19)
[2023-04-30] MEDS: ARGININE/GLUTAMINE/CALCIUM BMB 1 EACH POWD.PACK GT SCH (13:54)
[2023-04-30 16:59] VITALS: BP 119/72; TEMP 98.6; O2SAT 95
[2023-04-30 20:00] VITALS: BP 105/66; TEMP 97.6; O2SAT 99
[2023-04-30] MEDS: SERTRALINE HCL 25 MG TABLET GT SCH (21:01)
[2023-04-30] MEDS: OLANZAPINE 5 MG TABLET GT SCH (21:01)
[2023-04-30] MEDS: busPIRone 5 MG TABLET GT SCH (21:01)
[2023-04-30] MEDS: DIVALPROEX SODIUM 125 MG CAP.SPRINK GT SCH (21:01)
[2023-04-30] MEDS: MUPIROCIN OINT 2% 22 GM TUBE NS SCH (21:05)
[2023-05-01] MEDS ORDERED: PHARMACY TO CHANGE PO MEDS TO GT/NG XX PRN (04:30)
[2023-05-01] MEDS ORDERED: ZOLPIDEM TARTRATE 5 MG TABLET GT PRN (04:34)
[2023-05-01] MEDS ORDERED: MAG HYDROX/AL HYDROX/SIMETH 30 ML UDC GT PRN (04:34)
[2023-05-01] MEDS ORDERED: HYDROCODONE/APAP 5/325MG TABLET GT PRN (04:35)
[2023-05-01] MEDS ORDERED: MAGNESIUM HYDROXIDE 30 ML UDC GT PRN (04:35)
[2023-05-01] MEDS ORDERED: ACETAMINOPHEN 650 MG/20.3 ML UDC GT PRN (05:00)
[2023-05-01 05:13] VITALS: O2SAT 99
[2023-05-01] MEDS: MINERAL OIL/PETROLATUM,WHITE 120 GM JAR TP PRN (05:26)
[2023-05-01 07:03] LABS: BASOPHILS % (AUTO) 0.3 % (0.0-2.0); EOSINOPHILS # (AUTO) 0.4 K/uL (0.0-0.7); HEMATOCRIT 31 % (39-51); HEMOGLOBIN 9.6 g/dL (13.5-17.5); LYMPHOCYTES # (AUTO) 3.6 K/uL (0.8-4.8); LYMPHOCYTES % (AUTO) 25.1 % (20.0-44.0); MEAN CORPUSCULAR HEMOGLOBIN 30 PG (26.0-33.0); MEAN CORPUSCULAR HGB CONC 31 g/dl (31.0-36.0); MEAN CORPUSCULAR VOLUME 95 fL (80-96); MONOCYTES # (AUTO) 0.7 K/uL (0.1-1.30); MONOCYTES % (AUTO) 5.2 % (2.0-12.0); NEUTROPHILS # (AUTO) 9.4 K/uL (1.8-8.9); NEUTROPHILS % (AUTO) 66.4 % (43.0-81.0); PLATELET COUNT (AUTO) 198 K/uL (150-450); RED BLOOD CELL COUNT(AUTO) 3.23 MIL/uL (4.5-6.0); WHITE BLOOD COUNT (AUTO) 14.2 K/uL (4.3-11.0)
[2023-05-01 07:30] VITALS: BP 113/72; TEMP 98.6; O2SAT 91
[2023-05-01 07:45] LABS: CALCIUM, SERUM 8.3 mg/dL (8.5-10.1); CREATININE 0.7 mg/dL (0.6-1.3); POTASSIUM 3.8 mmol/L (3.5-5.1)
[2023-05-01 08:23] LABS: APPEARANCE,URINE CLEAR (CLEAR); BILIRUBIN,URINE NEGATIVE (NEGATIVE); BLOOD, URINE TRACE-INTA Ery/uL (NEGATIVE); COLOR,URINE YELLOW (YELLOW); KETONES,URINE NEGATIVE (NEGATIVE); LEUKOCYTE ESTERASE ,URINE NEGATIVE (NEGATIVE); NITRITE, URINE NEGATIVE (NEGATIVE); PH,URINE 6.5 (5.0-8.0); PROTEIN,URINE NEGATIVE (NEGATIVE); UGLUCOSE NEGATIVE (NEGATIVE); UROBILINOGEN,URINE 0.2 EU/dL (0.2)
[2023-05-01 08:26] LABS: ADD URINE CULTURE NO; BACTERIA,URINE None seen /HPF (None Seen); SQUAMOUS EPITHELIAL CELL,UR Few /HPF (None Seen); WBC,URINE 0-2 /HPF (0-3)
[2023-05-01 08:30] LABS: CREATININE, URINE 18.4 MG/DL (30.0-125.0); URINE TOTAL PROTEIN 13.8 mg/dL (0-11.9)
[2023-05-01] MEDS: PANTOPRAZOLE 40 MG/PACK PACK GT SCH (09:31)
[2023-05-01 10:42] LABS: EOSINOPHIL,URINE None Seen
[2023-05-01 16:00] VITALS: BP 136/76; TEMP 98.6
[2023-05-01 16:23] VITALS: O2SAT 97
== END 2023-05-01 18:20 | DRG 640 ==
LOC: ER 20:13 → MED 21:54
PROVIDERS: ADMIT Nurse Practitioner Acute Care; ATTEND Internal Medicine
DX: E86.0 Dehydration (principal); G93.41 Metabolic encephalopathy; L89.623 Pressure ulcer of left heel, stage 3; L89.154 Pressure ulcer of sacral region, stage 4; C91.10 Chronic lymphocytic leukemia of B-cell type not having achieved remission; L03.116 Cellulitis of left lower limb; N17.9 Acute kidney failure, unspecified; M25.552 Pain in left hip; E87.0 Hyperosmolality and hypernatremia; I11.9 Hypertensive heart disease without heart failure; E78.5 Hyperlipidemia, unspecified; D64.9 Anemia, unspecified; Z93.1 Gastrostomy status; M16.12 Unilateral primary osteoarthritis, left hip; M89.8X9 Other specified disorders of bone, unspecified site; G62.9 Polyneuropathy, unspecified; R26.9 Unspecified abnormalities of gait and mobility; R53.1 Weakness; Z88.8 Allergy status to other drugs, medicaments and biological substances; Z79.02 Long term (current) use of antithrombotics/antiplatelets; Z79.899 Other long term (current) drug therapy; Z79.82 Long term (current) use of aspirin; R13.10 Dysphagia, unspecified; M24.572 Contracture, left ankle; M24.571 Contracture, right ankle; F03.C0 Unspecified dementia, severe, without behavioral disturbance, psychotic disturbance, mood disturbance, and anxiety; E86.1 Hypovolemia; W19.XXXA Unspecified fall, initial encounter; Y92.9 Unspecified place or not applicable; I25.10 Atherosclerotic heart disease of native coronary artery without angina pectoris; L98.9 Disorder of the skin and subcutaneous tissue, unspecified
CPT/HCPCS: 36415; 71045-TC; 73700-TC; 80048-TC; 80053-TC; 81001; 82570-TC; 83735-TC; 83935-TC; 84100-TC; 84300-TC; 85025-TC; 85730-TC; 87081-TC; 94799-TC; 97112-TC; 97530-TC; A4223; A6403; C9113; G0378; J0690; J1630; J2270; J2405; J3490; J7030; J7060; J7070